=== PATIENT | female | born 1945 | race Caucasian/White ===

== ENCOUNTER 2019-03-26 07:38 | Observation (INO) | payer MEDICARE, BC ==
[~2019-03-26 07:38] MED LIST: Bisacodyl 5 MG Tab PO PRN; Lactated Ringers 1,000 ML IV SCH; Lidocaine 1%/Sod Bicarbonate in NS 8.4% 1 ML Syringe IDERM PRN; Magnesium Hydroxide 400 MG/5 ML Susp 30 ML Cup PO PRN; Morphine 2 MG/ML Syringe IVPUSH PRN; Naloxone 0.4 MG/ML SDV IVPUSH PRN; Ondansetron 4 MG/2 ML SDV IVPUSH PRN; Sennosides 8.6 MG Tab PO PRN; Sodium Chloride 0.9% 10 ML Syringe FLUSH PRN
[2019-03-26] MEDS ORDERED: Lidocaine 1% 4 ML ONE (07:42)
[2019-03-26] MEDS ORDERED: Propofol 200 MG/20 ML SDV ONE (07:42)
[2019-03-26] MEDS ORDERED: Midazolam 1 MG/ML 2 ML SDV ONE (07:43)
[2019-03-26] MEDS ORDERED: fentaNYL 100 MCG/2 ML SDV ONE (07:44)
[2019-03-26] MEDS ORDERED: Pregabalin 25 MG Cap PO ONE (08:00)
[2019-03-26] MEDS ORDERED: Morphine 8 MG, EPINEPHrine 0.3 MG, Cefuroxime 750 MG, Ketorolac 30 MG, Sodium Chloride ... ONE ×5 (08:00)
[2019-03-26] MEDS ORDERED: Acetaminophen 325 MG Tab PO ONE (08:00)
[2019-03-26] MEDS ORDERED: oxyCODONE ER 10 MG TAB.ER PO ONE (08:00)
[2019-03-26] MEDS ORDERED: Vancomycin 1 GM SDV ONE (08:08)
[2019-03-26] MEDS ORDERED: ceFAZolin 1 GM Vial ONE (08:08)
[2019-03-26] MEDS ORDERED: Bupivacaine 0.25% 10 ML SDV ONE ×2 (08:09→08:39)
[2019-03-26] MEDS ORDERED: Iodine/Sodium Iodide 2% Tincture 30 ML Bottle ONE (08:09)
--- NOTE | 2019-03-26 08:14 | PCM.PREANE ---
Preanesthetic Assessment - Anesthesia/Transfusion/Family Hx Anesthesia History: Prior Anesthesia Without Reaction Family History of Anesthesia Reaction: No Transfusion History: No Prior Transfusion(s) - Review of Systems General: No Symptoms Pulmonary: No Symptoms Cardiovascular: No Symptoms Gastrointestinal: No Symptoms Neurological: No Symptoms Other: Reports: None - Physical Assessment NPO Status Date: 03/25/19 NPO Status Time: 23:00 ASA Class: 2 Mental Status: Alert & Oriented x3 Airway Class: Mallampati = 2 Dentition: Reports: Normal Dentition Thyro-Mental Finger Breadths: 3 Mouth Opening Finger Breadths: 3 ROM/Head Extension: Full Lungs: Clear to Auscultation, Normal Respiratory Effort Cardiovascular: Regular Rate, Regular Rhythm - Lab Values: Laboratory Last Values MRSA (PCR) Negative 03/14/19 14:50 - Allergies Allergies/Adverse Reactions: Allergies Allergy/AdvReac Type Severity Reaction Status Date / Time No Known Allergies Allergy Verified 03/23/19 10:05 - Acknowledgements Anesthesia Type Planned: Spinal Pt an Appropriate Candidate for the Planned Anesthesia: Yes Alternatives and Risks of Anesthesia Discussed w Pt/Guardian: Yes Pt/Guardian Understands and Agrees with Anesthesia Plan: Yes PreAnesthesia Questionnaire HEENT History: Reports: None Cardiovascular History: Reports: Hypertension, Other (See Below) (hx palpitations r/t anxiety) Respiratory History: Reports: None Gastrointestinal History: Reports: None Genitourinary History: Reports: None Musculoskeletal History: Reports: Osteoarthritis Neurological History: Reports: None Psychiatric History: Reports: Anxiety, Depression, Other (See Below) Other Psychiatric History: Insomnia, Greif Endocrine/Metabolic History: Reports: None - Past Surgical History Head Surgeries/Procedures: Reports: None HEENT Surgical History: Reports: None Cardiovascular Surgical History: Reports: None GI Surgical History: Reports: None Female Surgical History: Reports: D&C Musculoskeletal Surgical History: Reports: None - SUBSTANCE USE Smoking Status *Q: Former Smoker Recreational Drug Use History: No - HOME MEDS Home Medications: Home Meds Calcium Carbonate/Vitamin D3 [Calcium 600 + Vit D 200] 1 tab PO DAILY 03/23/19 [ History] Cholecalciferol (Vitamin D3) [Vitamin D3] 1 tab PO DAILY 03/23/19 [History] Escitalopram Oxalate [Lexapro] 10 mg PO DAILY 03/23/19 [History] Annabella W/Tumeric 2 tab PO DAILY 03/23/19 [History] Losartan/Hydrochlorothiazide [Losartan-HCTZ 100-25 MG] 0.5 tab PO DAILY [History] Magnesium 400 mg PO DAILY 03/23/19 [History] Multivitamin [One-Daily Multi-Vitamin] 1 tab PO DAILY 03/23/19 [History] Potassium Gluconate [Potassium] 99 mg PO DAILY 03/23/19 [History] busPIRone [Buspar] 5 mg PO TID 03/23/19 [History] traZODone HCl [Trazodone HCl] 50 mg PO BEDTIME 03/23/19 [History] - CURRENT (IN HOUSE) MEDS Current Meds: Current Medications Aspirin (Ecotrin) 325 mg PO BID [facility] Bisacodyl (Dulcolax) 5 mg PO DAILY PRN PRN Reason: Constipation Docusate Sodium (Colace) 100 mg PO BID [facility] Famotidine (Pepcid) 20 mg PO Q12H [facility] Lactated Ringer's (Ringers, Lactated) 1,000 mls @ 125 mls/hr IV ASDIRECTED [facility] Stop: 03/26/19 23:00 Cefazolin Sodium/Dextrose 2 gm (/ Premix) 50 mls @ 100 mls/hr IV Q8H [facility] Stop: 03/26/19 23:14 Ketorolac Tromethamine (Toradol) 15 mg IVPUSH Q6H PRN PRN Reason: Pain Lidocaine/Sodium Bicarbonate (Buffered Lidocaine 1% In Ns 8.4%) 0.25 ml IDERM ONETIME PRN PRN Reason: Prior to IV Start Stop: 03/26/19 18:00 Magnesium Hydroxide (Milk Of Magnesia) 30 ml PO BID PRN PRN Reason: Constipation Morphine Sulfate (Morphine) 2 mg IVPUSH Q2H PRN PRN Reason: Breakthrough Pain Naloxone HCl (Narcan) 0.1 mg IVPUSH Q5M PRN PRN Reason: Oversedation Ondansetron HCl (Zofran) 4 mg IVPUSH Q6H PRN PRN Reason: Nausea/Vomiting Oxycodone/Acetaminophen (Percocet 325-5 Mg) 1 - 2 tab PO Q4H PRN PRN Reason: Pain Senna (Senna) 8.6 mg PO BID PRN PRN Reason: Constipation Sodium Chloride (Saline Flush) 10 ml FLUSH ASDIRECTED PRN PRN Reason: Keep Vein Open Stop: 03/26/19 18:00 Discontinued Medications Acetaminophen (Tylenol) 975 mg PO ONETIME ONE Stop: 03/26/19 08:01 Morphine Sulfate 8 mg/Epinephrine HCl 0.3 mg/Cefuroxime Sodium 750 mg/Ketorolac Tromethamine 30 mg/Sodium Chloride 27.9 ml 0 mg .XX ONETIME ONE Stop: 03/26/19 08:01 Fentanyl (Sublimaze) Confirm Administered Dose 100 mcg .ROUTE .STK-MED ONE Stop: 03/26/19 07:45 Lidocaine HCl (Xylocaine-Mpf 1%) Confirm Administered Dose 4 mls @ as directed .ROUTE .STK-MED ONE Stop: 03/26/19 07:43 Midazolam HCl (Versed 1 Mg/Ml) Confirm Administered Dose 2 mg .ROUTE .STK-MED ONE Stop: 03/26/19 07:44 Oxycodone HCl (Oxycontin) 10 mg PO ONETIME ONE Stop: 03/26/19 08:01 Pregabalin (Lyrica) 50 mg PO ONETIME ONE Stop: 03/26/19 08:01 Propofol (Diprivan 20 Ml) Confirm Administered Dose 200 mg .ROUTE .STK-MED ONE Stop: 03/26/19 07:43
[2019-03-26] MEDS ORDERED: EPINEPHrine 1 MG/ML SDV ONE (09:15)
[2019-03-26] MEDS ORDERED: Ropivacaine 0.5% 5 MG/ML 30 ML SDV ONE (09:15)
[2019-03-26] MEDS ORDERED: Lactated Ringers 1,000 ML ONE (09:56)
[2019-03-26] MEDS ORDERED: ePHEDrine/Normal Saline 25 MG/5 ML Syringe ONE ×2 (10:03→10:26)
[2019-03-26] MEDS ORDERED: Ketorolac 30 MG/ML SDV ONE (10:26)
[2019-03-26] MEDS ORDERED: Ondansetron 4 MG/2 ML SDV ONE (10:27)
--- NOTE | 2019-03-26 11:35 | PCM.POSTAN ---
POST ANESTHESIA ASSESSMENT - MENTAL STATUS Mental Status: Alert, Oriented - VITAL SIGNS Vital Signs: Last Vital Signs Temp 36.6 C 03/26/19 07:50 Pulse 88 03/26/19 07:50 Resp 16 03/26/19 07:50 BP 128/96 H 03/26/19 07:50 Pulse Ox 93 L 03/26/19 07:50 - RESPIRATORY Respiratory Status: Respiratory Rate WNL, Airway Patent, O2 Saturation Stable - CARDIOVASCULAR CV Status: Pulse Rate WNL, Blood Pressure Stable - GASTROINTESTINAL GI Status: No Symptoms - PAIN Pain Score: 0 - POST OP HYDRATION Hydration Status: Adequate & Stable
[2019-03-26] MEDS ORDERED: Ondansetron 4 MG/2 ML SDV IVPUSH PRN (11:38)
[2019-03-26] MEDS ORDERED: fentaNYL 100 MCG/2 ML SDV IVPUSH PRN (11:38)
--- NOTE | 2019-03-26 11:58 | PCM.SN ---
- Free Text/Narrative Note: Right selective femoral nerve block at the adductor canal for post-procedure pain control under US guidance requested by Dr. Mcintyre. Date:03-26-19 Time Out: 1141 Start:1142 End: 1147 Chart reviewed. Consent signed. Questions answered. Appropriate monitors applied. Time out performed. Right mid-shaft femur identified with ultrasound, scanning medially of femur, the femoral artery in the adductor canal visualized , and the femoral nerve located laterally to the artery. The skin was prepped lateral to the ultrasound probe with chlorahexadine times two. The 21ga 4 insulated block needle was inserted under direct ultrasound guidance into the adductor canal. 25mL of 0.5% ropivacaine with 1:200,000 epinephrine was injected circumferentially around the nerve with intermittent negative aspiration noted. Patient tolerated the procedure well. Sterile technique noted along with sterile gloves, mask, and sterile probe cover. See picture on progress note and vital signs on nurses notes. Block completed in PACU. Fanny Cooley CRNA
--- NOTE | 2019-03-26 12:20 | PCM48HPAN ---
Post Anesthesia Note - EVALUATION WITHIN 48HRS OF ANESTHETIC Vital Signs in Normal Range: Yes Patient Participated in Evaluation: Yes Respiratory Function Stable: Yes Airway Patent: Yes Cardiovascular Function Stable: Yes Hydration Status Stable: Yes Pain Control Satisfactory: Yes Nausea and Vomiting Control Satisfactory: Yes Mental Status Recovered: Yes Vital Signs: Last Vital Signs Temp 36.6 C 03/26/19 12:10 Pulse 80 03/26/19 12:10 Resp 18 03/26/19 12:10 BP 105/69 03/26/19 12:10 Pulse Ox 96 03/26/19 12:10
--- NOTE | 2019-03-26 13:30 | CR ---
Right knee: AP and lateral views of the right knee were obtained. Comparison: No prior right knee exam. Knee prosthesis is seen. Components are aligned. Underlying bony structures are intact. Impression: 1. Satisfactory appearance of recently placed right knee prosthesis. Diagnostic code #2 Study was dictated in [place] Standard Time
[2019-03-26] MEDS: Acetaminophen/oxyCODONE 325-5 MG Tab PO PRN ×2 (14:01→20:20)
[2019-03-26] MEDS: busPIRone 5 MG Tab PO SCH ×2 (14:01→20:21)
[2019-03-26] MEDS ORDERED: ceFAZolin 2 GM in Premix Bag 1 BAG IV SCH (16:30)
[2019-03-26] MEDS: Citalopram 20 MG Tab PO SCH (17:47)
[2019-03-26] MEDS: Multivitamins,Therapeutic Tab PO SCH (17:47)
[2019-03-26] MEDS: Calcium Carbonate/Vitamin D3 600 MG-200 Units Tab PO SCH (17:47)
[2019-03-26] MEDS: Magnesium Oxide 400 MG Tab PO SCH (17:47)
[2019-03-26] MEDS: Cholecalciferol (Vitamin D3) 5,000 UNIT Tab PO SCH (17:47)
[2019-03-26] MEDS: Ketorolac 15 MG/ML SDV IVPUSH PRN (20:19)
[2019-03-26] MEDS: ceFAZolin 2 GM in Premix Bag 1 BAG IV SCH (20:19)
[2019-03-26] MEDS: traZODone 50 MG Tab PO SCH (20:21)
[2019-03-26] MEDS: Famotidine 20 MG Tab PO SCH (20:21)
[2019-03-26] MEDS: Docusate Sodium 100 MG Cap PO SCH (20:21)
[2019-03-27] MEDS: ceFAZolin 2 GM in Premix Bag 1 BAG IV SCH ×2 (03:34→10:30)
[2019-03-27] MEDS: Acetaminophen/oxyCODONE 325-5 MG Tab PO PRN ×4 (03:34→20:48)
--- NOTE | 2019-03-27 07:59 | PCM48HPAN ---
Post Anesthesia Note - EVALUATION WITHIN 48HRS OF ANESTHETIC Vital Signs in Normal Range: Yes Patient Participated in Evaluation: Yes Respiratory Function Stable: Yes Airway Patent: Yes Cardiovascular Function Stable: Yes Hydration Status Stable: Yes Pain Control Satisfactory: Yes Nausea and Vomiting Control Satisfactory: Yes Mental Status Recovered: Yes Vital Signs: Last Vital Signs Temp 36.3 C 03/26/19 23:24 Pulse 81 03/27/19 03:34 Resp 18 03/27/19 03:34 BP 96/68 03/27/19 03:34 Pulse Ox 93 L 03/27/19 03:34 - COMMENTS/OBSERVATIONS Free Text/Narrative:: no anesthesia complications noted
--- NOTE | 2019-03-27 08:16 | PCM.SURGPN ---
- General Info Date of Service: 03/27/19 POD#: 1 Functional Status: Reports: Pain Controlled, Tolerating Diet, Ambulating, Urinating, Incentive Spirometry - Patient Data Vitals - Most Recent: Last Vital Signs Temp 97.3 F 03/26/19 23:24 Pulse 81 03/27/19 03:34 Resp 18 03/27/19 03:34 BP 96/68 03/27/19 03:34 Pulse Ox 93 L 03/27/19 03:34 Weight - Most Recent: 193 lb I&O - Last 24 Hours: Intake & Output 03/26/19 03/27/19 03/27/19 22:59 06:59 14:59 Intake Total 1150 950 Output Total 300 400 Balance 850 550 Lab Results Last 24 Hrs: Laboratory Results - last 24 hr 03/27/19 03/27/19 Range/Units 05:18 05:18 WBC 9.02 (3.98-10.04) K/mm3 RBC 4.10 (3.98-5.22) M/mm3 Hgb 10.5 L (11.2-15.7) gm/dl Hct 35.0 (34.1-44.9) % MCV 85.4 (79.4-94.8) fl MCH 25.6 (25.6-32.2) pg MCHC 30.0 L (32.2-35.5) g/dl RDW Std Deviation 50.5 H (36.4-46.3) fL Plt Count 301 (182-369) K/mm3 MPV 9.5 (9.4-12.3) fl Sodium 131 L (136-145) mEq/L Potassium 4.6 (3.5-5.1) mEq/L Chloride 97 L (98-107) mEq/L Carbon Dioxide 30 (21-32) mEq/L Anion Gap 8.6 (5-15) BUN 12 (7-18) mg/dL Creatinine 0.7 (0.55-1.02) mg/dL Est Cr Clr Drug Dosing 73.28 mL/min Estimated GFR (MDRD) > 60 (>60) mL/min BUN/Creatinine Ratio 17.1 (14-18) Glucose 126 H (83-115) mg/dL Calcium 9.9 (8.5-10.1) mg/dL Total Bilirubin 0.5 (0.2-1.0) mg/dL AST 14 L (15-37) U/L ALT 31 (14-59) U/L Alkaline Phosphatase 56 (46-116) U/L Total Protein 5.8 L (6.4-8.2) g/dl Albumin 2.7 L (3.4-5.0) g/dl Globulin 3.1 gm/dL Albumin/Globulin Ratio 0.9 L (1-2) Med Orders - Current: Current Medications Aspirin (Ecotrin) 325 mg PO BID [facility] Bisacodyl (Dulcolax) 5 mg PO DAILY PRN PRN Reason: Constipation Buspirone HCl (Buspar) 5 mg PO TID [facility] Last Admin: 03/26/19 20:21 Dose: 5 mg Calcium Carbonate (Calcium Carbonate/Vitamin D 600 Mg-200 Unit) 1 tab PO QPM [facility] Last Admin: 03/26/19 17:47 Dose: 1 tab Cholecalciferol (Vitamin D3) 5,000 unit PO QPM [facility] Last Admin: 03/26/19 17:47 Dose: 5,000 unit Citalopram Hydrobromide (Celexa) 20 mg PO QPM [facility] Last Admin: 03/26/19 17:47 Dose: 20 mg Docusate Sodium (Colace) 100 mg PO BID [facility] Last Admin: 03/26/19 20:21 Dose: 100 mg Famotidine (Pepcid) 20 mg PO Q12H [facility] Last Admin: 03/26/19 20:21 Dose: 20 mg Hydrochlorothiazide (Hydrochlorothiazide) 12.5 mg PO DAILY [facility] Cefazolin Sodium/Dextrose 2 gm (/ Premix) 50 mls @ 100 mls/hr IV Q8H [facility] Stop: 03/27/19 11:59 Last Admin: 03/27/19 03:34 Dose: 100 mls/hr Ketorolac Tromethamine (Toradol) 15 mg IVPUSH Q6H PRN PRN Reason: Pain Last Admin: 03/26/19 20:19 Dose: 15 mg Losartan Potassium (Cozaar) 50 mg PO DAILY [facility] Magnesium Hydroxide (Milk Of Magnesia) 30 ml PO BID PRN PRN Reason: Constipation Magnesium Oxide (Magnesium Oxide) 400 mg PO QPM [facility] Last Admin: 03/26/19 17:47 Dose: 400 mg Morphine Sulfate (Morphine) 2 mg IVPUSH Q2H PRN PRN Reason: Breakthrough Pain Multivitamins (Thera) 1 each PO QPM [facility] Last Admin: 03/26/19 17:47 Dose: 1 each Naloxone HCl (Narcan) 0.1 mg IVPUSH Q5M PRN PRN Reason: Oversedation Ondansetron HCl (Zofran) 4 mg IVPUSH Q6H PRN PRN Reason: Nausea/Vomiting Oxycodone/Acetaminophen (Percocet 325-5 Mg) 1 - 2 tab PO Q4H PRN PRN Reason: Pain Last Admin: 03/27/19 03:34 Dose: 2 tab Potassium Gluconate (99 Mg) 0 each PO DAILY [facility] Senna (Senna) 8.6 mg PO BID PRN PRN Reason: Constipation Trazodone HCl (Trazodone) 50 mg PO BEDTIME [facility] Last Admin: 03/26/19 20:21 Dose: 50 mg Discontinued Medications Acetaminophen (Tylenol) 975 mg PO ONETIME ONE Stop: 03/26/19 08:01 Last Admin: 03/26/19 08:09 Dose: 975 mg Bupivacaine HCl (Sensorcaine-Mpf 0.25%) Confirm Administered Dose 10 ml .ROUTE .STK-MED ONE Stop: 03/26/19 08:10 Last Admin: 03/26/19 10:59 Dose: 25 ml Bupivacaine HCl (Sensorcaine-Mpf 0.25%) Confirm Administered Dose 20 ml .ROUTE .STK-MED ONE Stop: 03/26/19 08:40 Cefazolin Sodium (Ancef) Confirm Administered Dose 2 gm .ROUTE .STK-MED ONE Stop: 03/26/19 08:09 Last Admin: 03/26/19 10:51 Dose: 2 gm Morphine Sulfate 8 mg/Epinephrine HCl 0.3 mg/Cefuroxime Sodium 750 mg/Ketorolac Tromethamine 30 mg/Sodium Chloride 27.9 ml 0 mg .XX ONETIME ONE Stop: 03/26/19 08:01 Last Admin: 03/26/19 10:58 Dose: 788.3 mg Ephedrine Sulfate (Ephedrine In Ns) Confirm Administered Dose 25 mg .ROUTE .STK- MED ONE Stop: 03/26/19 10:04 Ephedrine Sulfate (Ephedrine In Ns) Confirm Administered Dose 25 mg .ROUTE .STK- MED ONE Stop: 03/26/19 10:27 Epinephrine HCl (Adrenalin) Confirm Administered Dose 1 mg .ROUTE .ST-MED ONE Stop: 03/26/19 09:16 Fentanyl (Sublimaze) Confirm Administered Dose 100 mcg .ROUTE .ST-MED ONE Stop: 03/26/19 07:45 Fentanyl (Sublimaze) 50 mcg IVPUSH Q5M PRN PRN Reason: Pain Stop: 03/26/19 18:00 Lactated Ringer's (Ringers, Lactated) 1,000 mls @ 125 mls/hr IV ASDIRECTED [facility] Stop: 03/26/19 23:00 Last Admin: 03/26/19 08:15 Dose: 125 mls/hr Cefazolin Sodium/Dextrose 2 gm (/ Premix) 50 mls @ 100 mls/hr IV Q8H [facility] Stop: 03/27/19 08:59 Lidocaine HCl (Xylocaine-Mpf 1%) Confirm Administered Dose 4 mls @ as directed .ROUTE .[facility] ONE Stop: 03/26/19 07:43 Lactated Ringer's (Ringers, Lactated) Confirm Administered Dose 1,000 mls @ as directed .ROUTE .[facility]-MED ONE Stop: 03/26/19 09:57 Iodine (Iodine 2% Mild Tincture) Confirm Administered Dose 30 ml .ROUTE .ST- MED ONE Stop: 03/26/19 08:10 Last Admin: 03/26/19 10:50 Dose: 18 ml Ketorolac Tromethamine (Toradol) Confirm Administered Dose 30 mg .ROUTE .[facility]- MED ONE Stop: 03/26/19 10:27 Lidocaine/Sodium Bicarbonate (Buffered Lidocaine 1% In Ns 8.4%) 0.25 ml IDERM ONETIME PRN PRN Reason: Prior to IV Start Stop: 03/26/19 18:00 Last Admin: 03/26/19 08:15 Dose: 0.25 ml Midazolam HCl (Versed 1 Mg/Ml) Confirm Administered Dose 2 mg .ROUTE .ST-MED ONE Stop: 03/26/19 07:44 Ondansetron HCl (Zofran) Confirm Administered Dose 4 mg .ROUTE .STK-MED ONE Stop: 03/26/19 10:28 Ondansetron HCl (Zofran) 4 mg IVPUSH ONETIME PRN PRN Reason: Nausea/Vomiting Stop: 03/26/19 18:00 Oxycodone HCl (Oxycontin) 10 mg PO ONETIME ONE Stop: 03/26/19 08:01 Last Admin: 03/26/19 08:09 Dose: 10 mg Pregabalin (Lyrica) 50 mg PO ONETIME ONE Stop: 03/26/19 08:01 Last Admin: 03/26/19 08:09 Dose: 50 mg Propofol (Diprivan 20 Ml) Confirm Administered Dose 200 mg .ROUTE .STK-MED ONE Stop: 03/26/19 07:43 Ropivacaine (Naropin 0.5%) Confirm Administered Dose 30 ml .ROUTE .STK-MED ONE Stop: 03/26/19 09:16 Sodium Chloride (Saline Flush) 10 ml FLUSH ASDIRECTED PRN PRN Reason: Keep Vein Open Stop: 03/26/19 18:00 Tranexamic Acid (Cyklokapron) Confirm Administered Dose 1,000 mg .ROUTE .STK- MED ONE Stop: 03/26/19 08:09 Last Admin: 03/26/19 11:04 Dose: 1,000 mg Vancomycin HCl (Vancomycin) Confirm Administered Dose 1 gm .ROUTE .STK-MED ONE Stop: 03/26/19 08:09 Last Admin: 03/26/19 11:00 Dose: 1 gm - Exam Wound/Incisions: Dressing Dry and Intact General: Alert, Cooperative, No Acute Distress Lungs: Normal Respiratory Effort Extremities: Other (NVS intact for BLE. Arlene's negative.) Sepsis Event Note - Evaluation Sepsis Screening Result: No Definite Risk - Focused Exam Vital Signs: Vital Signs Temp Pulse Resp BP Pulse Ox 03/27/19 03:34 81 18 96/68 93 L 03/26/19 23:24 97.3 F 95 12 127/65 98 Date Exam was Performed: 03/27/19 Time Exam was Performed: 13:26 - Problem List Review Problem List Initiated/Reviewed/Updated: Yes - My Orders Last 24 Hours: Active Orders 24 hr Category Date Time Status Communication Order [RC] ASDIRECTED Care 03/26/19 11:37 Active Communication Order [RC] ASDIRECTED Care 03/27/19 08:05 Active Notify Provider [RC] ASDIRECTED Care 03/26/19 11:38 Active Oxygen Therapy [RC] ASDIRECTED Care 03/26/19 11:38 Active Ready for Discharge [RC] PER UNIT ROUTINE Care 03/27/19 08:00 Active Vital Signs [RC] Q4HR Care 03/26/19 11:38 Active Regular Diet [DIET] Diet 03/26/19 Lunch Active Aspirin [Ecotrin] Med 03/27/19 09:00 Active 325 mg PO BID Calcium Carbonate/Vitamin D3 [Calcium Carbonate/Vitamin Med 03/26/19 18:00 Active D 600 MG-200 Unit] 1 tab PO QPM Cholecalciferol (Vitamin D3) [Vitamin D3] Med 03/26/19 18:00 Active 5,000 unit PO QPM Citalopram [Celexa] Med 03/26/19 18:00 Active 20 mg PO QPM Docusate Sodium [Colace] Med 03/26/19 21:00 Active 100 mg PO BID Famotidine [Pepcid] Med 03/26/19 21:00 Active 20 mg PO Q12H Ketorolac [Toradol] Med 03/26/19 16:30 Active 15 mg IVPUSH Q6H PRN Losartan [Cozaar] Med 03/27/19 09:00 Active 50 mg PO DAILY Magnesium Oxide Med 03/26/19 18:00 Active 400 mg PO QPM Multivitamins,Therapeutic [Thera] Med 03/26/19 18:00 Active 1 each PO QPM Patient's Own Medication [Ptom] Med 03/27/19 09:00 Active 0 each PO DAILY busPIRone [Buspar] Med 03/26/19 15:00 Active 5 mg PO TID ceFAZolin [Ancef] 2 gm Med 03/26/19 19:30 Active Premix Bag 1 bag IV Q8H hydroCHLOROthiazide Med 03/27/19 09:00 Active 12.5 mg PO DAILY traZODone Med 03/26/19 21:00 Active 50 mg PO BEDTIME Medication Orders Aspirin (Ecotrin) 325 mg PO BID [facility] Bisacodyl (Dulcolax) 5 mg PO DAILY PRN PRN Reason: Constipation Buspirone HCl (Buspar) 5 mg PO TID [facility] Last Admin: 03/26/19 20:21 Dose: 5 mg Admin: 03/26/19 14:01 Dose: 5 mg Calcium Carbonate (Calcium Carbonate/Vitamin D 600 Mg-200 Unit) 1 tab PO QPM [facility] Last Admin: 03/26/19 17:47 Dose: 1 tab Cholecalciferol (Vitamin D3) 5,000 unit PO QPM [facility] Last Admin: 03/26/19 17:47 Dose: 5,000 unit Citalopram Hydrobromide (Celexa) 20 mg PO QPM [facility] Last Admin: 03/26/19 17:47 Dose: 20 mg Docusate Sodium (Colace) 100 mg PO BID [facility] Last Admin: 03/26/19 20:21 Dose: 100 mg Famotidine (Pepcid) 20 mg PO Q12H [facility] Last Admin: 03/26/19 20:21 Dose: 20 mg Hydrochlorothiazide (Hydrochlorothiazide) 12.5 mg PO DAILY [facility] Cefazolin Sodium/Dextrose 2 gm (/ Premix) 50 mls @ 100 mls/hr IV Q8H [facility] Stop: 03/27/19 11:59 Last Admin: 03/27/19 03:34 Dose: 100 mls/hr Infusion: 03/26/19 20:49 Dose: 100 mls/hr Admin: 03/26/19 20:19 Dose: 100 mls/hr Ketorolac Tromethamine (Toradol) 15 mg IVPUSH Q6H PRN PRN Reason: Pain Last Admin: 03/26/19 20:19 Dose: 15 mg Losartan Potassium (Cozaar) 50 mg PO DAILY [facility] Magnesium Hydroxide (Milk Of Magnesia) 30 ml PO BID PRN PRN Reason: Constipation Magnesium Oxide (Magnesium Oxide) 400 mg PO QPM [facility] Last Admin: 03/26/19 17:47 Dose: 400 mg Morphine Sulfate (Morphine) 2 mg IVPUSH Q2H PRN PRN Reason: Breakthrough Pain Multivitamins (Thera) 1 each PO QPM [facility] Last Admin: 03/26/19 17:47 Dose: 1 each Naloxone HCl (Narcan) 0.1 mg IVPUSH Q5M PRN PRN Reason: Oversedation Ondansetron HCl (Zofran) 4 mg IVPUSH Q6H PRN PRN Reason: Nausea/Vomiting Oxycodone/Acetaminophen (Percocet 325-5 Mg) 1 - 2 tab PO Q4H PRN PRN Reason: Pain Last Admin: 03/27/19 03:34 Dose: 2 tab Admin: 03/26/19 20:20 Dose: 2 tab Admin: 03/26/19 14:01 Dose: 1 tab Potassium Gluconate (99 Mg) 0 each PO DAILY [facility] Senna (Senna) 8.6 mg PO BID PRN PRN Reason: Constipation Trazodone HCl (Trazodone) 50 mg PO BEDTIME [facility] Last Admin: 03/26/19 20:21 Dose: 50 mg - Assessment Assessment (Free Text/Narrative):: POD#1 - right TKA - Plan Plan (Free Text/Narrative):: 1. Hgb 10.5. 2. ASA 325mg PO BID, frequent mobility, TEDs. 3. Outpatient therapy. 4. Discharge to home today if inpt therapy goals met and medically cleared. The pt's case was discussed with Dr. Mcintyre.
[2019-03-27] MEDS: Aspirin 325 MG Tab.EC PO SCH ×2 (10:02→20:48)
[2019-03-27] MEDS: Famotidine 20 MG Tab PO SCH ×2 (10:04→20:48)
[2019-03-27] MEDS: Hydrochlorothiazide 12.5 MG Cap PO SCH (10:05)
[2019-03-27] MEDS: busPIRone 5 MG Tab PO SCH ×3 (10:06→20:48)
[2019-03-27] MEDS: Docusate Sodium 100 MG Cap PO SCH ×2 (10:08→20:48)
[2019-03-27] MEDS: Losartan 25 MG Tab PO SCH (10:08)
--- NOTE | 2019-03-27 12:53 | PCM.CONS ---
H&P History of Present Illness - General Date of Service: 03/27/19 Admit Problem/Dx: Admission Diagnosis/Problem Admission Diagnosis/Problem Osteoarthritis of knee Source of Information: Patient, Provider, RN, RN Notes Reviewed - History of Present Illness Initial Comments - Free Text/Narative: Mee Faria is a 74 yo [address] patient of Dr. Mcintyre who is post-operative day 1 of right TKA. Hospital medicine was consulted for post-operative medical care of her hypoxia. At this time she is resting comfortably in bed. Pain is controlled. She denies any chest pain, shortness of breath, palpitations, nausea , or vomiting, although she was nauseated earlier today. She carries a history of: HTN, SI joint pain, depression, insomnia, thrombocytosis, hypercalcemia. She is not a smoker She is a full code. Her primary care provider is Keyona Gupta NP. - Related Data Allergies/Adverse Reactions: Allergies Allergy/AdvReac Type Severity Reaction Status Date / Time No Known Allergies Allergy Verified 03/23/19 10:05 Home Medications: Home Meds Calcium Carbonate/Vitamin D3 [Calcium 600 + Vit D 200] 1 tab PO DAILY 03/23/19 [ History] Cholecalciferol (Vitamin D3) [Vitamin D3] 1 tab PO DAILY 03/23/19 [History] Escitalopram Oxalate [Lexapro] 10 mg PO DAILY 03/23/19 [History] Losartan/Hydrochlorothiazide [Losartan-HCTZ 100-25 MG] 0.5 tab PO DAILY [History] Magnesium 400 mg PO DAILY 03/23/19 [History] Multivitamin [One-Daily Multi-Vitamin] 1 tab PO DAILY 03/23/19 [History] Potassium Gluconate [Potassium] 99 mg PO DAILY 03/23/19 [History] busPIRone [Buspar] 5 mg PO TID 03/23/19 [History] traZODone HCl [Trazodone HCl] 50 mg PO BEDTIME 03/23/19 [History] Acetaminophen/oxyCODONE [Percocet 325-5 MG] 1 - 2 tab PO Q4H PRN #60 tablet [Rx] Aspirin [Ecotrin EC] 325 mg PO BID #84 tab.ec 03/27/19 [Rx] Docusate Sodium [Colace] 100 mg PO BID cap 03/27/19 [Rx] Famotidine [Pepcid] 20 mg PO Q12H tablet 03/27/19 [Rx] Magnesium Hydroxide [Milk of Magnesia] 30 ml PO BID PRN cup 03/27/19 [Rx] Sennosides [Senna] 8.6 mg PO BID PRN tablet 03/27/19 [Rx] bisacodyL [Dulcolax] 5 mg PO DAILY PRN tablet 03/27/19 [Rx] Past Medical History HEENT History: Reports: None Cardiovascular History: Reports: Hypertension, Other (See Below) (hx palpitations r/t anxiety) Respiratory History: Reports: None Gastrointestinal History: Reports: None Genitourinary History: Reports: None Musculoskeletal History: Reports: Osteoarthritis Neurological History: Reports: None Psychiatric History: Reports: Anxiety, Depression, Other (See Below) Other Psychiatric History: Insomnia, [place] Endocrine/Metabolic History: Reports: None - Past Surgical History Head Surgeries/Procedures: Reports: None HEENT Surgical History: Reports: None Cardiovascular Surgical History: Reports: None GI Surgical History: Reports: None Female Surgical History: Reports: D&C Musculoskeletal Surgical History: Reports: None Social & Family History - Tobacco Use Smoking Status *Q: Former Smoker - Caffeine Use Caffeine Use: Reports: Coffee, Tea - Recreational Drug Use Recreational Drug Use: No Drug Use in Last 12 Months: No H&P Review of Systems - Review of Systems: Review Of Systems: See Below General: Reports: No Symptoms. Denies: Fever, Chills, Malaise, Weakness, Fatigue HEENT: Reports: No Symptoms. Denies: Headaches, Sore Throat Pulmonary: Reports: Shortness of Breath. Denies: Wheezing, Cough, Sputum Cardiovascular: Reports: Dyspnea on Exertion. Denies: Chest Pain, Palpitations , Edema Gastrointestinal: Reports: No Symptoms. Denies: Abdominal Pain, Constipation, Diarrhea, Nausea, Vomiting Genitourinary: Reports: No Symptoms. Denies: Pain Musculoskeletal: Reports: Leg Pain Skin: Reports: No Symptoms. Denies: Cyanosis Psychiatric: Reports: No Symptoms Neurological: Reports: Difficulty Walking, Gait Disturbance. Denies: Pre- Existing Deficit Hematologic/Lymphatic: Reports: No Symptoms Immunologic: Reports: No Symptoms Exam - Exam Exam: See Below - Vital Signs Vital Signs: Last Vital Signs Temp 97.3 F 03/26/19 23:24 Pulse 85 03/27/19 08:15 Resp 12 03/27/19 08:15 BP 110/62 03/27/19 10:08 Pulse Ox 91 L 03/27/19 08:15 Weight: 193 lb - Exam Quality Assessment: Supplemental Oxygen (2L), DVT Prophylaxis General: Alert, Oriented, Cooperative. No: Mild Distress HEENT: Conjunctiva Clear, EACs Clear, Hearing Intact, Mucosa Moist & [place], Nares Patent, Posterior Pharynx Clear, PERRLA Neck: Supple, Trachea Midline Lungs: Normal Respiratory Effort, Decreased Breath Sounds Cardiovascular: Regular Rate, Regular Rhythm GI/Abdominal Exam: Normal Bowel Sounds, Soft, Non-Tender, No Distention, No Abnormal Bruit (Female) Exam: Deferred Rectal (Female) Exam: Deferred Back Exam: Normal Inspection, Full Range of Motion Extremities: Normal Capillary Refill, Leg Pain, Limited Range of Motion, Other ( Bandage in place on left leg. Bandage is dry and intact. Cooling pack in place ) Skin: Warm, Dry, Intact Neurological: Cranial Nerves Intact (grossly ) Neuro Extensive - Mental Status: Alert, Oriented x3, Normal Mood/Affect - Patient Data Lab Results Last 24 hrs: Laboratory Results - last 24 hr 03/27/19 03/27/19 Range/Units 05:18 05:18 WBC 9.02 (3.98-10.04) K/mm3 RBC 4.10 (3.98-5.22) M/mm3 Hgb 10.5 L (11.2-15.7) gm/dl Hct 35.0 (34.1-44.9) % MCV 85.4 (79.4-94.8) fl MCH 25.6 (25.6-32.2) pg MCHC 30.0 L (32.2-35.5) g/dl RDW Std Deviation 50.5 H (36.4-46.3) fL Plt Count 301 (182-369) K/mm3 MPV 9.5 (9.4-12.3) fl Sodium 131 L (136-145) mEq/L Potassium 4.6 (3.5-5.1) mEq/L Chloride 97 L (98-107) mEq/L Carbon Dioxide 30 (21-32) mEq/L Anion Gap 8.6 (5-15) BUN 12 (7-18) mg/dL Creatinine 0.7 (0.55-1.02) mg/dL Est Cr Clr Drug Dosing 73.28 mL/min Estimated GFR (MDRD) > 60 (>60) mL/min BUN/Creatinine Ratio 17.1 (14-18) Glucose 126 H (83-115) mg/dL Calcium 9.9 (8.5-10.1) mg/dL Total Bilirubin 0.5 (0.2-1.0) mg/dL AST 14 L (15-37) U/L ALT 31 (14-59) U/L Alkaline Phosphatase 56 (46-116) U/L Total Protein 5.8 L (6.4-8.2) g/dl Albumin 2.7 L (3.4-5.0) g/dl Globulin 3.1 gm/dL Albumin/Globulin Ratio 0.9 L (1-2) Result Diagrams: 03/27/19 05:18 03/27/19 05:18 Sepsis Event Note - Evaluation Sepsis Screening Result: No Definite Risk - Focused Exam Vital Signs: Vital Signs Pulse Resp BP Pulse Ox 03/27/19 10:08 110/62 03/27/19 08:15 85 12 102/53 L 91 L 03/27/19 03:34 81 18 96/68 93 L Date Exam was Performed: 03/27/19 Time Exam was Performed: 14:02 Consult PN Assessment/Plan POD#: 1 (1) S/P total knee arthroplasty SNOMED Code(s): 3141097233857, 800725919, 0447126469436 Code(s): Z96.659 - PRESENCE OF UNSPECIFIED ARTIFICIAL KNEE JOINT Priority: High Current Visit: Yes Qualifiers: Laterality: right Qualified Code(s): Z96.651 - Presence of right artificial knee joint (2) Osteoarthritis SNOMED Code(s): 469279377 Code(s): M19.90 - UNSPECIFIED OSTEOARTHRITIS, UNSPECIFIED SITE Priority: High Current Visit: Yes Qualifiers: Osteoarthritis location: knee Osteoarthritis type: primary Laterality: right Qualified Code(s): M17.11 - Unilateral primary osteoarthritis, right knee (3) Postoperative hypoxia SNOMED Code(s): 421663114 Code(s): R09.02 - HYPOXEMIA; Z98.890 - OTHER SPECIFIED POSTPROCEDURAL STATES Priority: High Current Visit: Yes (4) Shortness of breath SNOMED Code(s): 316268485 Code(s): R06.02 - SHORTNESS OF BREATH Priority: High Current Visit: Yes (5) HTN (hypertension) SNOMED Code(s): 09095945 Code(s): I10 - ESSENTIAL (PRIMARY) HYPERTENSION Priority: Low Current Visit: No Qualifiers: Hypertension type: unspecified Qualified Code(s): I10 - Essential (primary ) hypertension (6) Chronic SI joint pain SNOMED Code(s): 655233207 Code(s): M53.3 - SACROCOCCYGEAL DISORDERS, NOT ELSEWHERE CLASSIFIED; G89.29 - OTHER CHRONIC PAIN Priority: Low Current Visit: No (7) Depression SNOMED Code(s): 48316677 Code(s): F32.9 - MAJOR DEPRESSIVE DISORDER, SINGLE EPISODE, UNSPECIFIED Priority: Low Current Visit: No Qualifiers: Depression Type: other depression Qualified Code(s): F32.89 - Other specified depressive episodes (8) Insomnia SNOMED Code(s): 663147032 Code(s): G47.00 - INSOMNIA, UNSPECIFIED Priority: Low Current Visit: No Qualifiers: Insomnia type: unspecified Qualified Code(s): G47.00 - Insomnia, unspecified (9) Thrombocytosis SNOMED Code(s): 6479770 Code(s): D47.3 - ESSENTIAL (HEMORRHAGIC) THROMBOCYTHEMIA Priority: Low Current Visit: No (10) Hypercalcemia SNOMED Code(s): 76222538 Code(s): E83.52 - HYPERCALCEMIA Priority: Low Current Visit: No (11) Atelectasis of both lungs SNOMED Code(s): 01553253 Code(s): J98.11 - ATELECTASIS Priority: High Current Visit: Yes (12) Pulmonary vascular congestion SNOMED Code(s): 335034679 Code(s): R09.89 - OTH SYMPTOMS AND SIGNS INVOLVING THE CIRC AND RESP SYSTEMS Priority: High Current Visit: Yes Problem List Initiated/Reviewed/Updated: Yes My Orders Last 24 Hours: My Active Orders 03/27/19 12:47 Chest 2V [CR] Routine 03/27/19 12:50 Evaluate for Home Oxygen [RT Evaluate for Home Oxygen] [RC] Click to Edit Plan: I/P: Acute: S/P right total knee arthroplasty - post-operative day 1 -DVT prophylaxis and pain management per primary care team -PT/OT -IS/RT -Monitor oxygen saturation -Titrate oxygen as needed -Home medications reviewed -Vital signs stable -Monitor labs -Pre-operative Hgb was 14.3; Now 10.5 -Pre-operative GFR was 77; now >60 -Pre-operative platelets were 439; Now 301 -Pre-operative calcium was 10.4; Now 9.9 Osteoarthritis of right knee -Pain management per primary care team Post-operative hypoxia -Unable to wean of off oxygen -Reports dyspnea on exertion -2 view CXR shows bibasilar atelectasis, pulmonary vascular congestion -Continue to use IS -Lasix 20mg IVP one time -Easy-pap/RT -Follow-up with PCP after discharge. Hyponatremia -Sodium pre-operatively 137; Now 131 -Monitor -Follow-up with PCP after discharge Chronic: HTN Chronic SI joint pain Depression Insomnia Thrombocytosis Hypercalcemia Plan: CM for discharge planning GI prophylaxis Home medications as indicated Other orders as listed above Routine AM labs She is a full code. Her PCP is Keyona Gupta NP. Thank you for allowing us to participate in the care of this patient!! Requesting Provider: Dr. Mcintyre Date Consult Requested: 03/27/19 Reason for Consult: Post-operative hypoxia Patient History Reviewed: Yes Admission H&P Reviewed: Yes Notified Requestor: Yes
--- NOTE | 2019-03-27 13:34 | CR ---
Chest: Two views of the chest were obtained. Comparison: No prior chest x-ray. Mild bibasilar atelectasis is seen. Heart size is felt to be slightly enlarged. Pulmonary vessels may be minimally congested. Large hiatal hernia is present. Tortuous thoracic aorta is seen. Impression: 1. Bibasilar atelectasis with possible mild pulmonary vascular congestion. Diagnostic code #3 This report was dictated in [place] Standard Time
[2019-03-27] MEDS ORDERED: Furosemide 20 MG/2 ML VIAL IVPUSH ONE (14:00)
[2019-03-27] MEDS: Magnesium Oxide 400 MG Tab PO SCH (17:37)
[2019-03-27] MEDS: Calcium Carbonate/Vitamin D3 600 MG-200 Units Tab PO SCH (17:38)
[2019-03-27] MEDS: Citalopram 20 MG Tab PO SCH (17:38)
[2019-03-27] MEDS: Multivitamins,Therapeutic Tab PO SCH (17:39)
[2019-03-27] MEDS: Cholecalciferol (Vitamin D3) 5,000 UNIT Tab PO SCH (17:39)
[2019-03-27] MEDS: traZODone 50 MG Tab PO SCH (20:48)
[2019-03-27] MEDS: Ketorolac 15 MG/ML SDV IVPUSH PRN (20:49)
[2019-03-28] MEDS: Acetaminophen/oxyCODONE 325-5 MG Tab PO PRN ×4 (06:26→21:34)
[2019-03-28] MEDS: Ketorolac 15 MG/ML SDV IVPUSH PRN (06:26)
--- NOTE | 2019-03-28 07:06 | PCM.SURGPN ---
- General Info Date of Service: 03/28/19 POD#: 2 Functional Status: Reports: Pain Controlled, Tolerating Diet, Ambulating, Urinating, Incentive Spirometry, Other (The pt states she is doing well. Her pain is controlled.) - Patient Data Vitals - Most Recent: Last Vital Signs Temp 97.9 F 03/27/19 20:59 Pulse 73 03/27/19 20:59 Resp 20 03/27/19 20:59 BP 110/91 H 03/27/19 20:59 Pulse Ox 90 L 03/28/19 06:28 Weight - Most Recent: 193 lb I&O - Last 24 Hours: Intake & Output 03/27/19 03/28/19 03/28/19 22:59 06:59 14:59 Intake Total 1650 Output Total 700 Balance 950 Lab Results Last 24 Hrs: Laboratory Results - last 24 hr 03/27/19 03/28/19 Range/Units 05:18 05:10 Sodium 131 L 127 L (136-145) mEq/L Potassium 4.6 4.1 (3.5-5.1) mEq/L Chloride 97 L 92 L (98-107) mEq/L Carbon Dioxide 30 31 (21-32) mEq/L Anion Gap 8.6 8.1 (5-15) BUN 12 11 (7-18) mg/dL Creatinine 0.7 0.6 (0.55-1.02) mg/dL Est Cr Clr Drug Dosing 73.28 85.50 mL/min Estimated GFR (MDRD) > 60 > 60 (>60) mL/min BUN/Creatinine Ratio 17.1 18.3 H (14-18) Glucose 126 H 106 (83-115) mg/dL Calcium 9.9 10.1 (8.5-10.1) mg/dL Total Bilirubin 0.5 0.5 (0.2-1.0) mg/dL AST 14 L 31 (15-37) U/L ALT 31 47 (14-59) U/L Alkaline Phosphatase 56 63 (46-116) U/L Total Protein 5.8 L 5.9 L (6.4-8.2) g/dl Albumin 2.7 L 2.6 L (3.4-5.0) g/dl Globulin 3.1 3.3 gm/dL Albumin/Globulin Ratio 0.9 L 0.8 L (1-2) Med Orders - Current: Current Medications Aspirin (Ecotrin) 325 mg PO BID [facility] Last Admin: 03/27/19 20:48 Dose: 325 mg Bisacodyl (Dulcolax) 5 mg PO DAILY PRN PRN Reason: Constipation Buspirone HCl (Buspar) 5 mg PO TID [facility] Last Admin: 03/27/19 20:48 Dose: 5 mg Calcium Carbonate (Calcium Carbonate/Vitamin D 600 Mg-200 Unit) 1 tab PO QPM [facility] Last Admin: 03/27/19 17:38 Dose: 1 tab Cholecalciferol (Vitamin D3) 5,000 unit PO QPM [facility] Last Admin: 03/27/19 17:39 Dose: 5,000 unit Citalopram Hydrobromide (Celexa) 20 mg PO QPM [facility] Last Admin: 03/27/19 17:38 Dose: 20 mg Docusate Sodium (Colace) 100 mg PO BID [facility] Last Admin: 03/27/19 20:48 Dose: 100 mg Famotidine (Pepcid) 20 mg PO Q12H [facility] Last Admin: 03/27/19 20:48 Dose: 20 mg Hydrochlorothiazide (Hydrochlorothiazide) 12.5 mg PO DAILY [facility] Last Admin: 03/27/19 10:05 Dose: 12.5 mg Losartan Potassium (Cozaar) 50 mg PO DAILY [facility] Last Admin: 03/27/19 10:08 Dose: 50 mg Magnesium Hydroxide (Milk Of Magnesia) 30 ml PO BID PRN PRN Reason: Constipation Magnesium Oxide (Magnesium Oxide) 400 mg PO QPM [facility] Last Admin: 03/27/19 17:37 Dose: 400 mg Morphine Sulfate (Morphine) 2 mg IVPUSH Q2H PRN PRN Reason: Breakthrough Pain Multivitamins (Thera) 1 each PO QPM [facility] Last Admin: 03/27/19 17:39 Dose: 1 each Naloxone HCl (Narcan) 0.1 mg IVPUSH Q5M PRN PRN Reason: Oversedation Ondansetron HCl (Zofran) 4 mg IVPUSH Q6H PRN PRN Reason: Nausea/Vomiting Last Admin: 03/27/19 11:06 Dose: 4 mg Oxycodone/Acetaminophen (Percocet 325-5 Mg) 1 - 2 tab PO Q4H PRN PRN Reason: Pain Last Admin: 03/28/19 06:26 Dose: 2 tab Potassium Gluconate (99 Mg) 0 each PO DAILY [facility] Last Admin: 03/27/19 10:11 Dose: Not Given Senna (Senna) 8.6 mg PO BID PRN PRN Reason: Constipation Trazodone HCl (Trazodone) 50 mg PO BEDTIME [facility] Last Admin: 03/27/19 20:48 Dose: 50 mg Discontinued Medications Acetaminophen (Tylenol) 975 mg PO ONETIME ONE Stop: 03/26/19 08:01 Last Admin: 03/26/19 08:09 Dose: 975 mg Bupivacaine HCl (Sensorcaine-Mpf 0.25%) Confirm Administered Dose 10 ml .ROUTE .STK-MED ONE Stop: 03/26/19 08:10 Last Admin: 03/26/19 10:59 Dose: 25 ml Bupivacaine HCl (Sensorcaine-Mpf 0.25%) Confirm Administered Dose 20 ml .ROUTE .STK-MED ONE Stop: 03/26/19 08:40 Cefazolin Sodium (Ancef) Confirm Administered Dose 2 gm .ROUTE .STK-MED ONE Stop: 03/26/19 08:09 Last Admin: 03/26/19 10:51 Dose: 2 gm Morphine Sulfate 8 mg/Epinephrine HCl 0.3 mg/Cefuroxime Sodium 750 mg/Ketorolac Tromethamine 30 mg/Sodium Chloride 27.9 ml 0 mg .XX ONETIME ONE Stop: 03/26/19 08:01 Last Admin: 03/26/19 10:58 Dose: 788.3 mg Ephedrine Sulfate (Ephedrine In Ns) Confirm Administered Dose 25 mg .ROUTE .STK- MED ONE Stop: 03/26/19 10:04 Ephedrine Sulfate (Ephedrine In Ns) Confirm Administered Dose 25 mg .ROUTE .STK- MED ONE Stop: 03/26/19 10:27 Epinephrine HCl (Adrenalin) Confirm Administered Dose 1 mg .ROUTE .STK-MED ONE Stop: 03/26/19 09:16 Fentanyl (Sublimaze) Confirm Administered Dose 100 mcg .ROUTE .STK-MED ONE Stop: 03/26/19 07:45 Fentanyl (Sublimaze) 50 mcg IVPUSH Q5M PRN PRN Reason: Pain Stop: 03/26/19 18:00 Furosemide (Lasix) 20 mg IVPUSH NOW ONE Stop: 03/27/19 14:01 Last Admin: 03/27/19 14:40 Dose: 20 mg Lactated Ringer's (Ringers, Lactated) 1,000 mls @ 125 mls/hr IV ASDIRECTED [facility] Stop: 03/26/19 23:00 Last Admin: 03/26/19 08:15 Dose: 125 mls/hr Cefazolin Sodium/Dextrose 2 gm (/ Premix) 50 mls @ 100 mls/hr IV Q8H [facility] Stop: 03/27/19 08:59 Lidocaine HCl (Xylocaine-Mpf 1%) Confirm Administered Dose 4 mls @ as directed .ROUTE .STK-MED ONE Stop: 03/26/19 07:43 Lactated Ringer's (Ringers, Lactated) Confirm Administered Dose 1,000 mls @ as directed .ROUTE .STK-MED ONE Stop: 03/26/19 09:57 Cefazolin Sodium/Dextrose 2 gm (/ Premix) 50 mls @ 100 mls/hr IV Q8H [facility] Stop: 03/27/19 11:59 Last Admin: 03/27/19 10:30 Dose: 100 mls/hr Iodine (Iodine 2% Mild Tincture) Confirm Administered Dose 30 ml .ROUTE .STK- MED ONE Stop: 03/26/19 08:10 Last Admin: 03/26/19 10:50 Dose: 18 ml Ketorolac Tromethamine (Toradol) 15 mg IVPUSH Q6H PRN PRN Reason: Pain Last Admin: 03/28/19 06:26 Dose: 15 mg Ketorolac Tromethamine (Toradol) Confirm Administered Dose 30 mg .ROUTE .STK- MED ONE Stop: 03/26/19 10:27 Lidocaine/Sodium Bicarbonate (Buffered Lidocaine 1% In Ns 8.4%) 0.25 ml IDERM ONETIME PRN PRN Reason: Prior to IV Start Stop: 03/26/19 18:00 Last Admin: 03/26/19 08:15 Dose: 0.25 ml Midazolam HCl (Versed 1 Mg/Ml) Confirm Administered Dose 2 mg .ROUTE .STK-MED ONE Stop: 03/26/19 07:44 Ondansetron HCl (Zofran) Confirm Administered Dose 4 mg .ROUTE .STK-MED ONE Stop: 03/26/19 10:28 Ondansetron HCl (Zofran) 4 mg IVPUSH ONETIME PRN PRN Reason: Nausea/Vomiting Stop: 03/26/19 18:00 Oxycodone HCl (Oxycontin) 10 mg PO ONETIME ONE Stop: 03/26/19 08:01 Last Admin: 03/26/19 08:09 Dose: 10 mg Pregabalin (Lyrica) 50 mg PO ONETIME ONE Stop: 03/26/19 08:01 Last Admin: 03/26/19 08:09 Dose: 50 mg Propofol (Diprivan 20 Ml) Confirm Administered Dose 200 mg .ROUTE .STK-MED ONE Stop: 03/26/19 07:43 Ropivacaine (Naropin 0.5%) Confirm Administered Dose 30 ml .ROUTE .STK-MED ONE Stop: 03/26/19 09:16 Sodium Chloride (Saline Flush) 10 ml FLUSH ASDIRECTED PRN PRN Reason: Keep Vein Open Stop: 03/26/19 18:00 Tranexamic Acid (Cyklokapron) Confirm Administered Dose 1,000 mg .ROUTE .STK- MED ONE Stop: 03/26/19 08:09 Last Admin: 03/26/19 11:04 Dose: 1,000 mg Vancomycin HCl (Vancomycin) Confirm Administered Dose 1 gm .ROUTE .STK-MED ONE Stop: 03/26/19 08:09 Last Admin: 03/26/19 11:00 Dose: 1 gm - Exam Wound/Incisions: Dressing Dry and Intact General: Alert, Cooperative, No Acute Distress Lungs: Normal Respiratory Effort Extremities: Other (NVS intact for BLE. Arlene's negative.) Sepsis Event Note - Evaluation Sepsis Screening Result: No Definite Risk - Focused Exam Vital Signs: Vital Signs Temp Pulse Resp BP Pulse Ox Pulse Ox Pulse Ox 03/28/19 06:28 90 L 03/28/19 06:20 84 L 03/28/19 05:59 93 L 03/27/19 20:59 97.9 F 73 20 110/91 H 94 L 03/27/19 20:21 94 L 03/27/19 19:48 77 92 L 03/27/19 19:46 80 82 L Date Exam was Performed: 03/28/19 Time Exam was Performed: 07:01 - Problem List Review Problem List Initiated/Reviewed/Updated: Yes - My Orders Last 24 Hours: Active Orders 24 hr Category Date Time Status Patient Status [ADT] Routine ADT 03/27/19 19:58 Active Communication Order [RC] ASDIRECTED Care 03/27/19 08:05 Active Evaluate for Home Oxygen [RT Evaluate for Home Oxygen] Care 03/27/19 12:50 Inactive [RC] Click to Edit Notify Provider Consults [RC] ASDIRECTED Care 03/27/19 12:46 Active Ready for Discharge [RC] PER UNIT ROUTINE Care 03/27/19 08:00 Inactive Consult to Physician [CONS] Routine Cons 03/27/19 12:45 Active Consult to Respiratory Therapy [Respiratory Care Assess Cons 03/27/19 13:54 Active and Treatment] [CONS] Routine BMP [BASIC METABOLIC PANEL,BMP] [CHEM] Routine Lab 03/28/19 06:48 Ordered CBC WITH AUTO DIFF [HEME] AM Lab 03/28/19 05:10 Received Aspirin [Ecotrin] Med 03/27/19 09:00 Active 325 mg PO BID Losartan [Cozaar] Med 03/27/19 09:00 Active 50 mg PO DAILY Patient's Own Medication [Ptom] Med 03/27/19 09:00 Active 0 each PO DAILY hydroCHLOROthiazide Med 03/27/19 09:00 Active 12.5 mg PO DAILY Medication Orders Aspirin (Ecotrin) 325 mg PO BID [facility] Last Admin: 03/27/19 20:48 Dose: 325 mg Admin: 03/27/19 10:02 Dose: 325 mg Bisacodyl (Dulcolax) 5 mg PO DAILY PRN PRN Reason: Constipation Buspirone HCl (Buspar) 5 mg PO TID [facility] Last Admin: 03/27/19 20:48 Dose: 5 mg Admin: 03/27/19 14:40 Dose: 5 mg Admin: 03/27/19 10:06 Dose: 5 mg Admin: 03/26/19 20:21 Dose: 5 mg Admin: 03/26/19 14:01 Dose: 5 mg Calcium Carbonate (Calcium Carbonate/Vitamin D 600 Mg-200 Unit) 1 tab PO QPM [facility] Last Admin: 03/27/19 17:38 Dose: 1 tab Admin: 03/26/19 17:47 Dose: 1 tab Cholecalciferol (Vitamin D3) 5,000 unit PO QPM [facility] Last Admin: 03/27/19 17:39 Dose: 5,000 unit Admin: 03/26/19 17:47 Dose: 5,000 unit Citalopram Hydrobromide (Celexa) 20 mg PO QPM [facility] Last Admin: 03/27/19 17:38 Dose: 20 mg Admin: 03/26/19 17:47 Dose: 20 mg Docusate Sodium (Colace) 100 mg PO BID [facility] Last Admin: 03/27/19 20:48 Dose: 100 mg Admin: 03/27/19 10:08 Dose: 100 mg Admin: 03/26/19 20:21 Dose: 100 mg Famotidine (Pepcid) 20 mg PO Q12H [facility] Last Admin: 03/27/19 20:48 Dose: 20 mg Admin: 03/27/19 10:04 Dose: 20 mg Admin: 03/26/19 20:21 Dose: 20 mg Hydrochlorothiazide (Hydrochlorothiazide) 12.5 mg PO DAILY [facility] Last Admin: 03/27/19 10:05 Dose: 12.5 mg Losartan Potassium (Cozaar) 50 mg PO DAILY [facility] Last Admin: 03/27/19 10:08 Dose: 50 mg Magnesium Hydroxide (Milk Of Magnesia) 30 ml PO BID PRN PRN Reason: Constipation Magnesium Oxide (Magnesium Oxide) 400 mg PO QPM [facility] Last Admin: 03/27/19 17:37 Dose: 400 mg Admin: 03/26/19 17:47 Dose: 400 mg Morphine Sulfate (Morphine) 2 mg IVPUSH Q2H PRN PRN Reason: Breakthrough Pain Multivitamins (Thera) 1 each PO QPM [facility] Last Admin: 03/27/19 17:39 Dose: 1 each Admin: 03/26/19 17:47 Dose: 1 each Naloxone HCl (Narcan) 0.1 mg IVPUSH Q5M PRN PRN Reason: Oversedation Ondansetron HCl (Zofran) 4 mg IVPUSH Q6H PRN PRN Reason: Nausea/Vomiting Last Admin: 03/27/19 11:06 Dose: 4 mg Oxycodone/Acetaminophen (Percocet 325-5 Mg) 1 - 2 tab PO Q4H PRN PRN Reason: Pain Last Admin: 03/28/19 06:26 Dose: 2 tab Admin: 03/27/19 20:48 Dose: 2 tab Admin: 03/27/19 16:44 Dose: 2 tab Admin: 03/27/19 10:00 Dose: 2 tab Admin: 03/27/19 03:34 Dose: 2 tab Admin: 03/26/19 20:20 Dose: 2 tab Admin: 03/26/19 14:01 Dose: 1 tab Potassium Gluconate (99 Mg) 0 each PO DAILY [facility] Last Admin: 03/27/19 10:11 Dose: Senna (Senna) 8.6 mg PO BID PRN PRN Reason: Constipation Trazodone HCl (Trazodone) 50 mg PO BEDTIME [facility] Last Admin: 03/27/19 20:48 Dose: 50 mg Admin: 03/26/19 20:21 Dose: 50 mg - Assessment Assessment (Free Text/Narrative):: POD#2 - right TKA - Plan Plan (Free Text/Narrative):: 1. O2 use managed by Hospitalist service. Further orders per Hospitalist service. 2. Discharge to home today if cleared by Hospitalist service. 3. 325mg ASA PO BID, frequent mobility, TEDs. 4. Outpatient therapy. The pt's case was discussed with Dr. Mcintyre.
--- NOTE | 2019-03-28 07:38 | PCM.CONSN ---
- General Info Date of Service: 03/28/19 Admission Dx/Problem (Free Text): Admission Diagnosis/Problem Admission Diagnosis/Problem Osteoarthritis of knee Functional Status: Reports: Pain Controlled, Tolerating Diet, Ambulating, Urinating, Incentive Spirometry. Denies: New Symptoms - Review of Systems General: Reports: No Symptoms. Denies: Fever, Weakness, Fatigue, Malaise, Chills HEENT: Reports: No Symptoms. Denies: Headaches, Sore Throat Pulmonary: Reports: Shortness of Breath. Denies: Pleuritic Chest Pain, Cough, Sputum, Wheezing Cardiovascular: Reports: Dyspnea on Exertion, Lightheadedness (mild ). Denies: Chest Pain, Palpitations Gastrointestinal: Reports: No Symptoms. Denies: Abdominal Pain, Constipation, Diarrhea, Nausea, Vomiting Genitourinary: Reports: No Symptoms. Denies: Pain Musculoskeletal: Reports: Leg Pain Skin: Reports: No Symptoms. Denies: Cyanosis Neurological: Reports: Difficulty Walking, Gait Disturbance Psychiatric: Reports: No Symptoms - Patient Data Vitals - Most Recent: Last Vital Signs Temp 97.9 F 03/27/19 20:59 Pulse 73 03/27/19 20:59 Resp 20 03/27/19 20:59 BP 110/91 H 03/27/19 20:59 Pulse Ox 90 L 03/28/19 06:28 Weight - Most Recent: 193 lb I&O - Last 24 Hours: Intake & Output 03/27/19 03/28/19 03/28/19 22:59 06:59 14:59 Intake Total 1650 Output Total 700 Balance 950 Lab Results Last 24 Hours: Laboratory Results - last 24 hr 03/27/19 03/28/19 03/28/19 Range/Units 05:18 05:10 05:10 WBC 9.11 (3.98-10.04) K/mm3 RBC 3.93 L (3.98-5.22) M/mm3 Hgb 10.2 L (11.2-15.7) gm/dl Hct 32.9 L (34.1-44.9) % MCV 83.7 (79.4-94.8) fl MCH 26.0 (25.6-32.2) pg MCHC 31.0 L (32.2-35.5) g/dl RDW Std Deviation 48.2 H (36.4-46.3) fL Plt Count 273 (182-369) K/mm3 MPV 9.5 (9.4-12.3) fl Neut % (Auto) 75.0 H (34.0-71.1) % Lymph % (Auto) 10.4 L (19.3-51.7) % [place] % (Auto) 13.1 H (4.7-12.5) % Eos % (Auto) 1.0 (0.7-5.8) Baso % (Auto) 0.2 (0.1-1.2) % Neut # (Auto) 6.83 H (1.56-6.13) K/mm3 Lymph # (Auto) 0.95 L (1.18-3.74) K/mm3 [place] # (Auto) 1.19 H (0.24-0.36) K/mm3 Eos # (Auto) 0.09 (0.04-0.36) K/mm3 Baso # (Auto) 0.02 (0.01-0.08) K/mm3 Sodium 131 L 127 L (136-145) mEq/L Potassium 4.6 4.1 (3.5-5.1) mEq/L Chloride 97 L 92 L (98-107) mEq/L Carbon Dioxide 30 31 (21-32) mEq/L Anion Gap 8.6 8.1 (5-15) BUN 12 11 (7-18) mg/dL Creatinine 0.7 0.6 (0.55-1.02) mg/dL Est Cr Clr Drug Dosing 73.28 85.50 mL/min Estimated GFR (MDRD) > 60 > 60 (>60) mL/min BUN/Creatinine Ratio 17.1 18.3 H (14-18) Glucose 126 H 106 (83-115) mg/dL Calcium 9.9 10.1 (8.5-10.1) mg/dL Total Bilirubin 0.5 0.5 (0.2-1.0) mg/dL AST 14 L 31 (15-37) U/L ALT 31 47 (14-59) U/L Alkaline Phosphatase 56 63 (46-116) U/L Total Protein 5.8 L 5.9 L (6.4-8.2) g/dl Albumin 2.7 L 2.6 L (3.4-5.0) g/dl Globulin 3.1 3.3 gm/dL Albumin/Globulin Ratio 0.9 L 0.8 L (1-2) Med Orders - Current: Current Medications Aspirin (Ecotrin) 325 mg PO BID [facility] Last Admin: 03/27/19 20:48 Dose: 325 mg Bisacodyl (Dulcolax) 5 mg PO DAILY PRN PRN Reason: Constipation Buspirone HCl (Buspar) 5 mg PO TID [facility] Last Admin: 03/27/19 20:48 Dose: 5 mg Calcium Carbonate (Calcium Carbonate/Vitamin D 600 Mg-200 Unit) 1 tab PO QPM [facility] Last Admin: 03/27/19 17:38 Dose: 1 tab Cholecalciferol (Vitamin D3) 5,000 unit PO QPM [facility] Last Admin: 03/27/19 17:39 Dose: 5,000 unit Citalopram Hydrobromide (Celexa) 20 mg PO QPM [facility] Last Admin: 03/27/19 17:38 Dose: 20 mg Docusate Sodium (Colace) 100 mg PO BID [facility] Last Admin: 03/27/19 20:48 Dose: 100 mg Famotidine (Pepcid) 20 mg PO Q12H [facility] Last Admin: 03/27/19 20:48 Dose: 20 mg Hydrochlorothiazide (Hydrochlorothiazide) 12.5 mg PO DAILY [facility] Last Admin: 03/27/19 10:05 Dose: 12.5 mg Losartan Potassium (Cozaar) 50 mg PO DAILY [facility] Last Admin: 03/27/19 10:08 Dose: 50 mg Magnesium Hydroxide (Milk Of Magnesia) 30 ml PO BID PRN PRN Reason: Constipation Magnesium Oxide (Magnesium Oxide) 400 mg PO QPM [facility] Last Admin: 03/27/19 17:37 Dose: 400 mg Morphine Sulfate (Morphine) 2 mg IVPUSH Q2H PRN PRN Reason: Breakthrough Pain Multivitamins (Thera) 1 each PO QPM [facility] Last Admin: 03/27/19 17:39 Dose: 1 each Naloxone HCl (Narcan) 0.1 mg IVPUSH Q5M PRN PRN Reason: Oversedation Ondansetron HCl (Zofran) 4 mg IVPUSH Q6H PRN PRN Reason: Nausea/Vomiting Last Admin: 03/27/19 11:06 Dose: 4 mg Oxycodone/Acetaminophen (Percocet 325-5 Mg) 1 - 2 tab PO Q4H PRN PRN Reason: Pain Last Admin: 03/28/19 06:26 Dose: 2 tab Potassium Gluconate (99 Mg) 0 each PO DAILY [facility] Last Admin: 03/27/19 10:11 Dose: Not Given Senna (Senna) 8.6 mg PO BID PRN PRN Reason: Constipation Trazodone HCl (Trazodone) 50 mg PO BEDTIME [facility] Last Admin: 03/27/19 20:48 Dose: 50 mg Discontinued Medications Acetaminophen (Tylenol) 975 mg PO ONETIME ONE Stop: 03/26/19 08:01 Last Admin: 03/26/19 08:09 Dose: 975 mg Bupivacaine HCl (Sensorcaine-Mpf 0.25%) Confirm Administered Dose 10 ml .ROUTE .STK-MED ONE Stop: 03/26/19 08:10 Last Admin: 03/26/19 10:59 Dose: 25 ml Bupivacaine HCl (Sensorcaine-Mpf 0.25%) Confirm Administered Dose 20 ml .ROUTE .STK-MED ONE Stop: 03/26/19 08:40 Cefazolin Sodium (Ancef) Confirm Administered Dose 2 gm .ROUTE .STK-MED ONE Stop: 03/26/19 08:09 Last Admin: 03/26/19 10:51 Dose: 2 gm Morphine Sulfate 8 mg/Epinephrine HCl 0.3 mg/Cefuroxime Sodium 750 mg/Ketorolac Tromethamine 30 mg/Sodium Chloride 27.9 ml 0 mg .XX ONETIME ONE Stop: 03/26/19 08:01 Last Admin: 03/26/19 10:58 Dose: 788.3 mg Ephedrine Sulfate (Ephedrine In Ns) Confirm Administered Dose 25 mg .ROUTE .STK- MED ONE Stop: 03/26/19 10:04 Ephedrine Sulfate (Ephedrine In Ns) Confirm Administered Dose 25 mg .ROUTE .STK- MED ONE Stop: 03/26/19 10:27 Epinephrine HCl (Adrenalin) Confirm Administered Dose 1 mg .ROUTE .STK-MED ONE Stop: 03/26/19 09:16 Fentanyl (Sublimaze) Confirm Administered Dose 100 mcg .ROUTE .STK-MED ONE Stop: 03/26/19 07:45 Fentanyl (Sublimaze) 50 mcg IVPUSH Q5M PRN PRN Reason: Pain Stop: 03/26/19 18:00 Furosemide (Lasix) 20 mg IVPUSH NOW ONE Stop: 03/27/19 14:01 Last Admin: 03/27/19 14:40 Dose: 20 mg Lactated Ringer's (Ringers, Lactated) 1,000 mls @ 125 mls/hr IV ASDIRECTED [facility] Stop: 03/26/19 23:00 Last Admin: 03/26/19 08:15 Dose: 125 mls/hr Cefazolin Sodium/Dextrose 2 gm (/ Premix) 50 mls @ 100 mls/hr IV Q8H [facility] Stop: 03/27/19 08:59 Lidocaine HCl (Xylocaine-Mpf 1%) Confirm Administered Dose 4 mls @ as directed .ROUTE .STK-MED ONE Stop: 03/26/19 07:43 Lactated Ringer's (Ringers, Lactated) Confirm Administered Dose 1,000 mls @ as directed .ROUTE .STK-MED ONE Stop: 03/26/19 09:57 Cefazolin Sodium/Dextrose 2 gm (/ Premix) 50 mls @ 100 mls/hr IV Q8H [facility] Stop: 03/27/19 11:59 Last Admin: 03/27/19 10:30 Dose: 100 mls/hr Iodine (Iodine 2% Mild Tincture) Confirm Administered Dose 30 ml .ROUTE .STK- MED ONE Stop: 03/26/19 08:10 Last Admin: 03/26/19 10:50 Dose: 18 ml Ketorolac Tromethamine (Toradol) 15 mg IVPUSH Q6H PRN PRN Reason: Pain Last Admin: 03/28/19 06:26 Dose: 15 mg Ketorolac Tromethamine (Toradol) Confirm Administered Dose 30 mg .ROUTE .STK- MED ONE Stop: 03/26/19 10:27 Lidocaine/Sodium Bicarbonate (Buffered Lidocaine 1% In Ns 8.4%) 0.25 ml IDERM ONETIME PRN PRN Reason: Prior to IV Start Stop: 03/26/19 18:00 Last Admin: 03/26/19 08:15 Dose: 0.25 ml Midazolam HCl (Versed 1 Mg/Ml) Confirm Administered Dose 2 mg .ROUTE .STK-MED ONE Stop: 03/26/19 07:44 Ondansetron HCl (Zofran) Confirm Administered Dose 4 mg .ROUTE .STK-MED ONE Stop: 03/26/19 10:28 Ondansetron HCl (Zofran) 4 mg IVPUSH ONETIME PRN PRN Reason: Nausea/Vomiting Stop: 03/26/19 18:00 Oxycodone HCl (Oxycontin) 10 mg PO ONETIME ONE Stop: 03/26/19 08:01 Last Admin: 03/26/19 08:09 Dose: 10 mg Pregabalin (Lyrica) 50 mg PO ONETIME ONE Stop: 03/26/19 08:01 Last Admin: 03/26/19 08:09 Dose: 50 mg Propofol (Diprivan 20 Ml) Confirm Administered Dose 200 mg .ROUTE .STK-MED ONE Stop: 03/26/19 07:43 Ropivacaine (Naropin 0.5%) Confirm Administered Dose 30 ml .ROUTE .STK-MED ONE Stop: 03/26/19 09:16 Sodium Chloride (Saline Flush) 10 ml FLUSH ASDIRECTED PRN PRN Reason: Keep Vein Open Stop: 03/26/19 18:00 Tranexamic Acid (Cyklokapron) Confirm Administered Dose 1,000 mg .ROUTE .STK- MED ONE Stop: 03/26/19 08:09 Last Admin: 03/26/19 11:04 Dose: 1,000 mg Vancomycin HCl (Vancomycin) Confirm Administered Dose 1 gm .ROUTE .STK-MED ONE Stop: 03/26/19 08:09 Last Admin: 03/26/19 11:00 Dose: 1 gm - Exam Quality Assessment: Supplemental Oxygen (2L), DVT Prophylaxis General: Alert, Oriented, Cooperative, No Acute Distress HEENT: Pupils Equal, Pupils Reactive, Mucous Membr. Moist/[place] Neck: Supple, Trachea Midline Lungs: Clear to Auscultation, Normal Respiratory Effort Cardiovascular: Regular Rate, Regular Rhythm GI/Abdominal Exam: Normal Bowel Sounds, Soft, Non-Tender, No Distention, No Abnormal Bruit (Female) Exam: Deferred Back Exam: Normal Inspection, Full Range of Motion Extremities: Normal Capillary Refill, Leg Pain, Limited Range of Motion, Other ( Bandage in place on right leg. Cooling pack in place. ) Skin: Warm, Dry, Intact Wound/Incisions: Dressing Dry and Intact Neurological: No New Focal Deficit Psy/Mental Status: Alert, Normal Affect, Normal Mood Sepsis Event Note - Evaluation Sepsis Screening Result: No Definite Risk - Focused Exam Vital Signs: Vital Signs Temp Pulse Resp BP Pulse Ox Pulse Ox Pulse Ox 03/28/19 06:28 90 L 03/28/19 06:20 84 L 03/28/19 05:59 93 L 03/27/19 20:59 97.9 F 73 20 110/91 H 94 L 03/27/19 20:21 94 L 03/27/19 19:48 77 92 L 03/27/19 19:46 80 82 L Date Exam was Performed: 03/28/19 Time Exam was Performed: 14:40 Consult PN Assessment/Plan POD#: 2 (1) S/P total knee arthroplasty SNOMED Code(s): 7270369636260, 202796294, 8577670061485 Code(s): Z96.659 - PRESENCE OF UNSPECIFIED ARTIFICIAL KNEE JOINT Priority: High Current Visit: Yes Qualifiers: Laterality: right Qualified Code(s): Z96.651 - Presence of right artificial knee joint (2) Osteoarthritis SNOMED Code(s): 603444037 Code(s): M19.90 - UNSPECIFIED OSTEOARTHRITIS, UNSPECIFIED SITE Priority: High Current Visit: Yes Qualifiers: Osteoarthritis location: knee Osteoarthritis type: primary Laterality: right Qualified Code(s): M17.11 - Unilateral primary osteoarthritis, right knee (3) Postoperative hypoxia SNOMED Code(s): 627679555 Code(s): R09.02 - HYPOXEMIA; Z98.890 - OTHER SPECIFIED POSTPROCEDURAL STATES Priority: High Current Visit: Yes (4) Shortness of breath SNOMED Code(s): 917413925 Code(s): R06.02 - SHORTNESS OF BREATH Priority: High Current Visit: Yes (5) HTN (hypertension) SNOMED Code(s): 73706444 Code(s): I10 - ESSENTIAL (PRIMARY) HYPERTENSION Priority: Low Current Visit: No Qualifiers: Hypertension type: unspecified Qualified Code(s): I10 - Essential (primary ) hypertension (6) Chronic SI joint pain SNOMED Code(s): 262431908 Code(s): M53.3 - SACROCOCCYGEAL DISORDERS, NOT ELSEWHERE CLASSIFIED; G89.29 - OTHER CHRONIC PAIN Priority: Low Current Visit: No (7) Depression SNOMED Code(s): 52970833 Code(s): F32.9 - MAJOR DEPRESSIVE DISORDER, SINGLE EPISODE, UNSPECIFIED Priority: Low Current Visit: No Qualifiers: Depression Type: other depression Qualified Code(s): F32.89 - Other specified depressive episodes (8) Insomnia SNOMED Code(s): 415195408 Code(s): G47.00 - INSOMNIA, UNSPECIFIED Priority: Low Current Visit: No Qualifiers: Insomnia type: unspecified Qualified Code(s): G47.00 - Insomnia, unspecified (9) Thrombocytosis SNOMED Code(s): 2498382 Code(s): D47.3 - ESSENTIAL (HEMORRHAGIC) THROMBOCYTHEMIA Priority: Low Current Visit: No (10) Hypercalcemia SNOMED Code(s): 93508669 Code(s): E83.52 - HYPERCALCEMIA Priority: Low Current Visit: No (11) Atelectasis of both lungs SNOMED Code(s): 33680674 Code(s): J98.11 - ATELECTASIS Priority: High Current Visit: Yes (12) Pulmonary vascular congestion SNOMED Code(s): 880674998 Code(s): R09.89 - OTH SYMPTOMS AND SIGNS INVOLVING THE CIRC AND RESP SYSTEMS Priority: High Current Visit: Yes (13) Hyponatremia SNOMED Code(s): 07967335 Code(s): E87.1 - HYPO-OSMOLALITY AND HYPONATREMIA Priority: High Current Visit: Yes Problem List Initiated/Reviewed/Updated: Yes My Orders Last 24 Hours: My Active Orders 03/27/19 12:50 Evaluate for Home Oxygen [RT Evaluate for Home Oxygen] [RC] Click to Edit 03/27/19 13:54 Consult to Respiratory Therapy [Respiratory Care Assess and Treatment] [CONS] Routine Plan: I/P: Acute: S/P right total knee arthroplasty - post-operative day 2 -DVT prophylaxis and pain management per primary care team -PT/OT -IS/RT -Monitor oxygen saturation -Titrate oxygen as needed - 2L currently -Home medications reviewed -Vital signs stable -Monitor labs -Pre-operative Hgb was 14.3; Now 10.5 -Pre-operative GFR was 77; now >60 -Pre-operative platelets were 439; Now 301 -Pre-operative calcium was 10.4; Now 9.9 Osteoarthritis of right knee -Pain management per primary care team Post-operative hypoxia -Unable to wean of off oxygen -Reports dyspnea on exertion -2 view CXR shows bibasilar atelectasis, pulmonary vascular congestion -Continue to use IS -Lasix 20mg IVP one time on 03/27/18 -Easy-pap/RT -Home O2 - 2L at all times, 4L with activity -Follow-up with PCP after discharge. Hyponatremia -Sodium pre-operatively 137; Now 131-->127-->125 -Urine sodium/creatinine -Home medications reviewed -IV fluid bolus as ordered -Follow-up with PCP after discharge -Repeat BMP, magnesium in AM Chronic: HTN Chronic SI joint pain Depression Insomnia Thrombocytosis Hypercalcemia Plan: Upgraded to observation status CM for discharge planning GI prophylaxis Home medications as indicated Other orders as listed above Routine AM labs She is a full code. Her PCP is Dr. Lainez Thank you for allowing us to participate in the care of this patient!!
[2019-03-28] MEDS: Hydrochlorothiazide 12.5 MG Cap PO SCH (08:09)
[2019-03-28] MEDS: Famotidine 20 MG Tab PO SCH ×2 (08:10→20:41)
[2019-03-28] MEDS: busPIRone 5 MG Tab PO SCH ×3 (08:11→20:41)
[2019-03-28] MEDS: Losartan 25 MG Tab PO SCH (08:12)
[2019-03-28] MEDS: Aspirin 325 MG Tab.EC PO SCH ×2 (08:12→20:42)
[2019-03-28] MEDS: Docusate Sodium 100 MG Cap PO SCH ×2 (08:13→20:41)
[2019-03-28] MEDS ORDERED: Sodium Chloride 0.9% 500 ML IV ONE ×2 (11:04→20:00)
[2019-03-28] MEDS: Multivitamins,Therapeutic Tab PO SCH (17:09)
[2019-03-28] MEDS: Cholecalciferol (Vitamin D3) 5,000 UNIT Tab PO SCH (17:09)
[2019-03-28] MEDS: Magnesium Oxide 400 MG Tab PO SCH (17:09)
[2019-03-28] MEDS: Calcium Carbonate/Vitamin D3 600 MG-200 Units Tab PO SCH (17:09)
[2019-03-28] MEDS: Citalopram 20 MG Tab PO SCH (17:09)
[2019-03-28] MEDS: traZODone 50 MG Tab PO SCH (20:42)
[2019-03-29] MEDS: Acetaminophen/oxyCODONE 325-5 MG Tab PO PRN ×4 (06:35→21:53)
--- NOTE | 2019-03-29 08:10 | PCM.CONSN ---
- General Info Date of Service: 03/29/19 Admission Dx/Problem (Free Text): Admission Diagnosis/Problem Admission Diagnosis/Problem Osteoarthritis of knee Functional Status: Reports: Pain Controlled, Tolerating Diet, Ambulating, Urinating, Incentive Spirometry. Denies: New Symptoms - Review of Systems General: Reports: No Symptoms. Denies: Fever, Weakness, Fatigue, Malaise, Chills HEENT: Reports: No Symptoms. Denies: Headaches, Sore Throat Pulmonary: Reports: No Symptoms. Denies: Shortness of Breath, Cough Cardiovascular: Reports: No Symptoms. Denies: Chest Pain, Palpitations, Dyspnea on Exertion Gastrointestinal: Reports: No Symptoms. Denies: Abdominal Pain, Constipation, Diarrhea, Nausea, Vomiting Genitourinary: Reports: No Symptoms. Denies: Pain Musculoskeletal: Reports: Leg Pain Skin: Reports: No Symptoms. Denies: Cyanosis Neurological: Reports: Difficulty Walking, Gait Disturbance. Denies: Confusion , Seizure, Weakness Psychiatric: Reports: No Symptoms - Patient Data Vitals - Most Recent: Last Vital Signs Temp 97.9 F 03/29/19 04:00 Pulse 78 03/29/19 06:06 Resp 16 03/29/19 04:00 BP 119/81 03/29/19 04:00 Pulse Ox 94 L 03/29/19 06:06 Weight - Most Recent: 205 lb 8 oz I&O - Last 24 Hours: Intake & Output 03/28/19 03/29/19 03/29/19 22:59 06:59 14:59 Intake Total 2220 1950 Output Total 250 2600 Balance 1970 -650 Lab Results Last 24 Hours: Laboratory Results - last 24 hr 03/28/19 03/29/19 Range/Units 10:05 06:20 Sodium 134 L (136-145) mEq/L Potassium 4.6 (3.5-5.1) mEq/L Chloride 98 (98-107) mEq/L Carbon Dioxide 32 (21-32) mEq/L Anion Gap 8.6 (5-15) BUN 10 (7-18) mg/dL Creatinine 0.5 L (0.55-1.02) mg/dL Est Cr Clr Drug Dosing 102.60 mL/min Estimated GFR (MDRD) > 60 (>60) mL/min BUN/Creatinine Ratio 20.0 H (14-18) Glucose 96 (83-115) mg/dL Calcium 9.9 (8.5-10.1) mg/dL Magnesium 1.9 (1.8-2.4) mg/dl Ur Random Creatinine 84.7 (30.0-125.0) mg/dL Ur Random Sodium 9 L (40-220) mEq/L Med Orders - Current: Current Medications Aspirin (Ecotrin) 325 mg PO BID [facility] Last Admin: 03/28/19 20:42 Dose: 325 mg Bisacodyl (Dulcolax) 5 mg PO DAILY PRN PRN Reason: Constipation Last Admin: 03/28/19 20:41 Dose: 5 mg Buspirone HCl (Buspar) 5 mg PO TID [facility] Last Admin: 03/28/19 20:41 Dose: 5 mg Calcium Carbonate (Calcium Carbonate/Vitamin D 600 Mg-200 Unit) 1 tab PO QPM [facility] Last Admin: 03/28/19 17:09 Dose: 1 tab Cholecalciferol (Vitamin D3) 5,000 unit PO QPM [facility] Last Admin: 03/28/19 17:09 Dose: 5,000 unit Citalopram Hydrobromide (Celexa) 20 mg PO QPM [facility] Last Admin: 03/28/19 17:09 Dose: 20 mg Docusate Sodium (Colace) 100 mg PO BID [facility] Last Admin: 03/28/19 20:41 Dose: 100 mg Famotidine (Pepcid) 20 mg PO Q12H [facility] Last Admin: 03/28/19 20:41 Dose: 20 mg Losartan Potassium (Cozaar) 50 mg PO DAILY [facility] Last Admin: 03/28/19 08:12 Dose: 50 mg Magnesium Hydroxide (Milk Of Magnesia) 30 ml PO BID PRN PRN Reason: Constipation Last Admin: 03/29/19 06:37 Dose: 30 ml Magnesium Oxide (Magnesium Oxide) 400 mg PO QPM [facility] Last Admin: 03/28/19 17:09 Dose: 400 mg Morphine Sulfate (Morphine) 2 mg IVPUSH Q2H PRN PRN Reason: Breakthrough Pain Multivitamins (Thera) 1 each PO QPM [facility] Last Admin: 03/28/19 17:09 Dose: 1 each Naloxone HCl (Narcan) 0.1 mg IVPUSH Q5M PRN PRN Reason: Oversedation Ondansetron HCl (Zofran) 4 mg IVPUSH Q6H PRN PRN Reason: Nausea/Vomiting Last Admin: 03/27/19 11:06 Dose: 4 mg Oxycodone/Acetaminophen (Percocet 325-5 Mg) 1 - 2 tab PO Q4H PRN PRN Reason: Pain Last Admin: 03/29/19 06:35 Dose: 2 tab Potassium Gluconate (99 Mg) 0 each PO DAILY [facility] Last Admin: 03/28/19 08:14 Dose: Not Given Senna (Senna) 8.6 mg PO BID PRN PRN Reason: Constipation Trazodone HCl (Trazodone) 50 mg PO BEDTIME [facility] Last Admin: 03/28/19 20:42 Dose: 50 mg Discontinued Medications Acetaminophen (Tylenol) 975 mg PO ONETIME ONE Stop: 03/26/19 08:01 Last Admin: 03/26/19 08:09 Dose: 975 mg Bupivacaine HCl (Sensorcaine-Mpf 0.25%) Confirm Administered Dose 10 ml .ROUTE .STK-MED ONE Stop: 03/26/19 08:10 Last Admin: 03/26/19 10:59 Dose: 25 ml Bupivacaine HCl (Sensorcaine-Mpf 0.25%) Confirm Administered Dose 20 ml .ROUTE .STK-MED ONE Stop: 03/26/19 08:40 Cefazolin Sodium (Ancef) Confirm Administered Dose 2 gm .ROUTE .STK-MED ONE Stop: 03/26/19 08:09 Last Admin: 03/26/19 10:51 Dose: 2 gm Morphine Sulfate 8 mg/Epinephrine HCl 0.3 mg/Cefuroxime Sodium 750 mg/Ketorolac Tromethamine 30 mg/Sodium Chloride 27.9 ml 0 mg .XX ONETIME ONE Stop: 03/26/19 08:01 Last Admin: 03/26/19 10:58 Dose: 788.3 mg Ephedrine Sulfate (Ephedrine In Ns) Confirm Administered Dose 25 mg .ROUTE .STK- MED ONE Stop: 03/26/19 10:04 Ephedrine Sulfate (Ephedrine In Ns) Confirm Administered Dose 25 mg .ROUTE .STK- MED ONE Stop: 03/26/19 10:27 Epinephrine HCl (Adrenalin) Confirm Administered Dose 1 mg .ROUTE .STK-MED ONE Stop: 03/26/19 09:16 Fentanyl (Sublimaze) Confirm Administered Dose 100 mcg .ROUTE .STK-MED ONE Stop: 03/26/19 07:45 Fentanyl (Sublimaze) 50 mcg IVPUSH Q5M PRN PRN Reason: Pain Stop: 03/26/19 18:00 Furosemide (Lasix) 20 mg IVPUSH NOW ONE Stop: 03/27/19 14:01 Last Admin: 03/27/19 14:40 Dose: 20 mg Hydrochlorothiazide (Hydrochlorothiazide) 12.5 mg PO DAILY [facility] Last Admin: 03/28/19 08:09 Dose: 12.5 mg Lactated Ringer's (Ringers, Lactated) 1,000 mls @ 125 mls/hr IV ASDIRECTED [facility] Stop: 03/26/19 23:00 Last Admin: 03/26/19 08:15 Dose: 125 mls/hr Cefazolin Sodium/Dextrose 2 gm (/ Premix) 50 mls @ 100 mls/hr IV Q8H [facility] Stop: 03/27/19 08:59 Lidocaine HCl (Xylocaine-Mpf 1%) Confirm Administered Dose 4 mls @ as directed .ROUTE .STK-MED ONE Stop: 03/26/19 07:43 Lactated Ringer's (Ringers, Lactated) Confirm Administered Dose 1,000 mls @ as directed .ROUTE .STK-MED ONE Stop: 03/26/19 09:57 Cefazolin Sodium/Dextrose 2 gm (/ Premix) 50 mls @ 100 mls/hr IV Q8H [facility] Stop: 03/27/19 11:59 Last Admin: 03/27/19 10:30 Dose: 100 mls/hr Sodium Chloride (Normal Saline) 500 mls @ 999 mls/hr IV .BOLUS ONE Stop: 03/28/19 11:34 Last Admin: 03/28/19 12:00 Dose: 999 mls/hr Sodium Chloride (Normal Saline) 500 mls @ 999 mls/min IV .BOLUS ONE Stop: 03/28/19 20:01 Last Admin: 03/28/19 20:37 Dose: 999 mls/min Iodine (Iodine 2% Mild Tincture) Confirm Administered Dose 30 ml .ROUTE .STK- MED ONE Stop: 03/26/19 08:10 Last Admin: 03/26/19 10:50 Dose: 18 ml Ketorolac Tromethamine (Toradol) 15 mg IVPUSH Q6H PRN PRN Reason: Pain Last Admin: 03/28/19 06:26 Dose: 15 mg Ketorolac Tromethamine (Toradol) Confirm Administered Dose 30 mg .ROUTE .STK- MED ONE Stop: 03/26/19 10:27 Lidocaine/Sodium Bicarbonate (Buffered Lidocaine 1% In Ns 8.4%) 0.25 ml IDERM ONETIME PRN PRN Reason: Prior to IV Start Stop: 03/26/19 18:00 Last Admin: 03/26/19 08:15 Dose: 0.25 ml Midazolam HCl (Versed 1 Mg/Ml) Confirm Administered Dose 2 mg .ROUTE .STK-MED ONE Stop: 03/26/19 07:44 Ondansetron HCl (Zofran) Confirm Administered Dose 4 mg .ROUTE .STK-MED ONE Stop: 03/26/19 10:28 Ondansetron HCl (Zofran) 4 mg IVPUSH ONETIME PRN PRN Reason: Nausea/Vomiting Stop: 03/26/19 18:00 Oxycodone HCl (Oxycontin) 10 mg PO ONETIME ONE Stop: 03/26/19 08:01 Last Admin: 03/26/19 08:09 Dose: 10 mg Pregabalin (Lyrica) 50 mg PO ONETIME ONE Stop: 03/26/19 08:01 Last Admin: 03/26/19 08:09 Dose: 50 mg Propofol (Diprivan 20 Ml) Confirm Administered Dose 200 mg .ROUTE .STK-MED ONE Stop: 03/26/19 07:43 Ropivacaine (Naropin 0.5%) Confirm Administered Dose 30 ml .ROUTE .STPhilo-MED ONE Stop: 03/26/19 09:16 Sodium Chloride (Saline Flush) 10 ml FLUSH ASDIRECTED PRN PRN Reason: Keep Vein Open Stop: 03/26/19 18:00 Tranexamic Acid (Cyklokapron) Confirm Administered Dose 1,000 mg .ROUTE .STK- MED ONE Stop: 03/26/19 08:09 Last Admin: 03/26/19 11:04 Dose: 1,000 mg Vancomycin HCl (Vancomycin) Confirm Administered Dose 1 gm .ROUTE .STK-MED ONE Stop: 03/26/19 08:09 Last Admin: 03/26/19 11:00 Dose: 1 gm - Exam Quality Assessment: Supplemental Oxygen (2L), DVT Prophylaxis General: Alert, Oriented, Cooperative, No Acute Distress HEENT: Pupils Equal, Pupils Reactive, Mucous Membr. Moist/[place] Neck: Supple, Trachea Midline Lungs: Clear to Auscultation, Normal Respiratory Effort Cardiovascular: Regular Rate, Regular Rhythm GI/Abdominal Exam: Normal Bowel Sounds, Soft, Non-Tender, No Distention, No Abnormal Bruit (Female) Exam: Deferred Back Exam: Normal Inspection, Full Range of Motion Extremities: Normal Capillary Refill, Leg Pain, Limited Range of Motion, Other Skin: Warm, Dry, Intact Neurological: No New Focal Deficit Psy/Mental Status: Alert, Normal Affect, Normal Mood Sepsis Event Note - Evaluation Sepsis Screening Result: No Definite Risk - Focused Exam Vital Signs: Vital Signs Temp Pulse Resp BP Pulse Ox Pulse Ox 03/29/19 06:06 78 94 L 03/29/19 04:00 97.9 F 77 16 119/81 91 L 03/29/19 00:46 129/72 03/28/19 23:46 98.4 F 89 16 170/101 H 94 L 03/28/19 20:35 92 L 03/28/19 20:23 97.9 F 72 16 118/74 93 L Date Exam was Performed: 03/29/19 Time Exam was Performed: 11:16 Consult PN Assessment/Plan POD#: 3 (1) S/P total knee arthroplasty SNOMED Code(s): 0468050456310, 228329842, 1424120208206 Code(s): Z96.659 - PRESENCE OF UNSPECIFIED ARTIFICIAL KNEE JOINT Priority: High Current Visit: Yes Qualifiers: Laterality: right Qualified Code(s): Z96.651 - Presence of right artificial knee joint (2) Osteoarthritis SNOMED Code(s): 707720684 Code(s): M19.90 - UNSPECIFIED OSTEOARTHRITIS, UNSPECIFIED SITE Priority: High Current Visit: Yes Qualifiers: Osteoarthritis location: knee Osteoarthritis type: primary Laterality: right Qualified Code(s): M17.11 - Unilateral primary osteoarthritis, right knee (3) Postoperative hypoxia SNOMED Code(s): 149783652 Code(s): R09.02 - HYPOXEMIA; Z98.890 - OTHER SPECIFIED POSTPROCEDURAL STATES Priority: High Current Visit: Yes (4) Shortness of breath SNOMED Code(s): 185475883 Code(s): R06.02 - SHORTNESS OF BREATH Priority: High Current Visit: Yes (5) HTN (hypertension) SNOMED Code(s): 09947856 Code(s): I10 - ESSENTIAL (PRIMARY) HYPERTENSION Priority: Low Current Visit: No Qualifiers: Hypertension type: unspecified Qualified Code(s): I10 - Essential (primary ) hypertension (6) Chronic SI joint pain SNOMED Code(s): 790272596 Code(s): M53.3 - SACROCOCCYGEAL DISORDERS, NOT ELSEWHERE CLASSIFIED; G89.29 - OTHER CHRONIC PAIN Priority: Low Current Visit: No (7) Depression SNOMED Code(s): 54276707 Code(s): F32.9 - MAJOR DEPRESSIVE DISORDER, SINGLE EPISODE, UNSPECIFIED Priority: Low Current Visit: No Qualifiers: Depression Type: other depression Qualified Code(s): F32.89 - Other specified depressive episodes (8) Insomnia SNOMED Code(s): 923976838 Code(s): G47.00 - INSOMNIA, UNSPECIFIED Priority: Low Current Visit: No Qualifiers: Insomnia type: unspecified Qualified Code(s): G47.00 - Insomnia, unspecified (9) Thrombocytosis SNOMED Code(s): 8884029 Code(s): D47.3 - ESSENTIAL (HEMORRHAGIC) THROMBOCYTHEMIA Priority: Low Current Visit: No (10) Hypercalcemia SNOMED Code(s): 08570626 Code(s): E83.52 - HYPERCALCEMIA Priority: Low Current Visit: No (11) Atelectasis of both lungs SNOMED Code(s): 83874896 Code(s): J98.11 - ATELECTASIS Priority: High Current Visit: Yes (12) Pulmonary vascular congestion SNOMED Code(s): 150603671 Code(s): R09.89 - OTH SYMPTOMS AND SIGNS INVOLVING THE CIRC AND RESP SYSTEMS Priority: High Current Visit: Yes (13) Hyponatremia SNOMED Code(s): 05464296 Code(s): E87.1 - HYPO-OSMOLALITY AND HYPONATREMIA Priority: High Current Visit: Yes Problem List Initiated/Reviewed/Updated: Yes My Orders Last 24 Hours: My Active Orders 03/28/19 07:38 Evaluate for Home Oxygen [RT Evaluate for Home Oxygen] [RC] Click to Edit Plan: I/P: Acute: S/P right total knee arthroplasty - post-operative day 3 -DVT prophylaxis and pain management per primary care team -PT/OT -IS/RT -Monitor oxygen saturation -Titrate oxygen as needed - 2L currently -Home medications reviewed -Vital signs stable -Monitor labs -Pre-operative Hgb was 14.3; Now 10.5-->10.2 -Pre-operative GFR was 77; now >60 -Pre-operative platelets were 439; Now 301-->273 -Pre-operative calcium was 10.4; Now 9.9 Osteoarthritis of right knee -Pain management per primary care team Post-operative hypoxia -Unable to wean of off oxygen -Reports dyspnea on exertion -2 view CXR shows bibasilar atelectasis, pulmonary vascular congestion -Continue to use IS -Lasix 20mg IVP one time on 03/27/18 -Easy-pap/RT -Home O2 - 2L at all times, 4L with activity -Follow-up with PCP after discharge. Hyponatremia -Sodium pre-operatively 137; Now 131-->127-->125-->134 -Urine sodium/creatinine -Home medications reviewed -IV fluid bolus as ordered -Follow-up with PCP after discharge Chronic: HTN Chronic SI joint pain Depression Insomnia Thrombocytosis Hypercalcemia Plan: Upgraded to observation status CM for discharge planning GI prophylaxis Home medications as indicated Other orders as listed above Routine AM labs She is a full code. Her PCP is Dr. Lewis From a hospitalist standpoint Mee is doing well. Her labs have remained stable and her sodium has improved after a few NS boluses. Her HCTZ was also stopped as it is felt this is likely contributing to her hyponatremia. Her vital signs have remained stable. She has been working with therapies and has been up ambulating. Unfortunately we were unable to wean her from oxygen. She is to wear 2L at all times and 4L with activity. Recommend pulmonology follow- up with a PFT after symptoms resolve. She was instructed to continue to utilizer her IS. Will put orders in for re-check BMP on 04/02/[address] Lewis. Home medications were otherwise continued. No nursing or patient concerns. Recommend follow-up with PCP next week regarding hyponatremia and new oxygen. Thank you for allowing us to participate in the care of this patient!!
[2019-03-29] MEDS: Losartan 25 MG Tab PO SCH (09:42)
[2019-03-29] MEDS: busPIRone 5 MG Tab PO SCH ×3 (09:43→21:08)
[2019-03-29] MEDS: Aspirin 325 MG Tab.EC PO SCH ×2 (09:44→21:08)
[2019-03-29] MEDS: Famotidine 20 MG Tab PO SCH ×2 (09:45→21:08)
[2019-03-29] MEDS: Docusate Sodium 100 MG Cap PO SCH ×2 (09:45→21:08)
--- NOTE | 2019-03-29 11:11 | PCM.OPNOTE ---
- General Post-Op/Procedure Note Date of Surgery/Procedure: 03/26/19 Operative Procedure(s): right total knee arthroplasty Pre Op Diagnosis: right knee osteoarthrosis Post-Op Diagnosis: Same Primary Surgeon: Himanshu Mcintyre Anesthesia Provider: Yee Ahumada Public Relations Player: Shandra Ramsay Public Relations Player: Shannan Conner EBL in mLs: 352 Complications: None Condition: Good Free Text/Narrative:: Intake & Output 03/28/19 03/29/19 03/29/19 22:59 06:59 14:59 Intake Total 2220 1950 180 Output Total 250 2600 Balance 1970 - 180 5/5 9mm 32x10
--- NOTE | 2019-03-29 12:23 | OR ---
DATE OF OPERATION: 03/26/2019 SURGEON: Himanshu Mcintyre MD OPERATION PERFORMED: Right total knee arthroplasty. PREOPERATIVE DIAGNOSIS: Right knee osteoarthrosis. POSTOPERATIVE DIAGNOSIS: Right knee osteoarthrosis. ANESTHESIA: Local MAC with spinal. ANESTHESIA PROVIDER: Yee Ahumada CRNA ASSISTANTS: 1. Shandra Ramsay PA-C. 2. Shannan Conner LPN. ESTIMATED BLOOD LOSS: 352 mL. COMPLICATIONS: None. CONDITION: Stable. IMPLANTS: 1. Serafina size 5 press-fit CR femur. 2. Russell size 5 press-fit tibial baseplate. 3. Serafina size 5, 9 mm CS polyethylene insert. 4. Serafina size 32 x 10 mm cement press-fit asymmetric patella. DESCRIPTION OF PROCEDURE: The patient was identified in the preop holding area. Proper site was marked and identified by the surgeon. The patient was taken back to the operating theater. After adequate anesthesia, the patient's right lower extremity had a nonsterile tourniquet applied and it was sterilely prepped and draped in the usual sterile fashion. OR time-out was performed. The patient received 2 g IV Ancef. At this time, the right lower extremity was exsanguinated. Tourniquet was insufflated to 300 mmHg. Standard medial parapatellar incision was made. Medial parapatellar arthrotomy was created. Deep fibers of the MCL were raised and anterior fat pad was resected. At this time, attention was turned to the patella. Patella measured a 24, it was resected to a 14 for a 32 x 10 mm patella. Drill holes were then drilled and found to be in adequate position. The drill was then drilled in the distal femur and the intramedullary distal femoral cutting guide was then placed. 8 mm was resected off the distal femur and was found to be an adequate resection. Sizing guide was placed. It was found to be a size 5 press-fit CR femur that was shown on the implant record at the beginning of this dictation. The drill holes were drilled for the epicondylar axis using Whitesides line and epicondyles as reference. At this time, the 4-in-1 cutting block was placed. An anterior posterior and anterior and posterior chamfer cuts were then completed. Attention was turned to the tibia. The posterior medial lateral retractors were placed. The extramedullary tibial guide was placed. It was placed in the old footprint of the ACL. It was aligned with the center of the ankle and 0 degrees of slope, 9 mm was then resected off the unaffected side. There was found to be an acceptable reduction. At this time, posterior osteophytes were removed along with medial and lateral meniscus. A trial implant was placed with a correct sized tibia that was mentioned at the beginning of the dictation. A Serafina size 5, 9 mm CS polyethylene insert was then placed. The patient's knee was brought through range of motion. The patella was tracking centrally and was stable to varus and valgus stress. Alignment was found to be roughly at 0 degrees. The tibia was stamped and drilled in proper rotation. The universal tibial base plate was impacted in place. Next, the Russell size 5 press-fit CR femur impacted into place and the Serafina size 5, 9 mm CS polyethylene insert was placed. The patient's knee was brought into full extension. The patella was then press-fit in place at this time. Tourniquet was deflated. One liter dilute Betadine solution was irrigated through the knee along with 3 L of pulse lavage irrigation with Ancef. Periarticular injection was then completed. The patient's knee was brought through a range of motion. Once the cement had time to set up and it was found to be stable to varus valgus stress, the patella was tracking centrally with full range of motion. At this time, a #2 barbed suture was used for closure of the medial parapatellar arthrotomy. Topical tranexamic acid was placed. 2-0 Vicryl was used subcutaneously, Prineo was used for the skin. The patient tolerated the procedure well and was sent to the PACU in stable condition. MMODAL /[id number]
--- NOTE | 2019-03-29 12:28 | PCM.SURGPN ---
- General Info Date of Service: 03/29/19 POD#: 3 Functional Status: Reports: Pain Controlled, Tolerating Diet, Ambulating, Urinating, Incentive Spirometry, Other (The pt states she is doing well and prepared for discharge.) - Patient Data Vitals - Most Recent: Last Vital Signs Temp 98.2 F 03/29/19 09:11 Pulse 92 03/29/19 09:11 Resp 16 03/29/19 09:11 BP 124/69 03/29/19 09:42 Pulse Ox 93 L 03/29/19 09:11 Weight - Most Recent: 205 lb 8 oz I&O - Last 24 Hours: Intake & Output 03/28/19 03/29/19 03/29/19 22:59 06:59 14:59 Intake Total 2220 1950 180 Output Total 250 2600 Balance 1970 -650 180 Lab Results Last 24 Hrs: Laboratory Results - last 24 hr 03/29/19 Range/Units 06:20 Sodium 134 L (136-145) mEq/L Potassium 4.6 (3.5-5.1) mEq/L Chloride 98 (98-107) mEq/L Carbon Dioxide 32 (21-32) mEq/L Anion Gap 8.6 (5-15) BUN 10 (7-18) mg/dL Creatinine 0.5 L (0.55-1.02) mg/dL Est Cr Clr Drug Dosing 102.60 mL/min Estimated GFR (MDRD) > 60 (>60) mL/min BUN/Creatinine Ratio 20.0 H (14-18) Glucose 96 (83-115) mg/dL Calcium 9.9 (8.5-10.1) mg/dL Magnesium 1.9 (1.8-2.4) mg/dl Med Orders - Current: Current Medications Aspirin (Ecotrin) 325 mg PO BID [facility] Last Admin: 03/29/19 09:44 Dose: 325 mg Bisacodyl (Dulcolax) 5 mg PO DAILY PRN PRN Reason: Constipation Last Admin: 03/28/19 20:41 Dose: 5 mg Buspirone HCl (Buspar) 5 mg PO TID [facility] Last Admin: 03/29/19 09:43 Dose: 5 mg Calcium Carbonate (Calcium Carbonate/Vitamin D 600 Mg-200 Unit) 1 tab PO QPM [facility] Last Admin: 03/28/19 17:09 Dose: 1 tab Cholecalciferol (Vitamin D3) 5,000 unit PO QPM [facility] Last Admin: 03/28/19 17:09 Dose: 5,000 unit Citalopram Hydrobromide (Celexa) 20 mg PO QPM [facility] Last Admin: 03/28/19 17:09 Dose: 20 mg Docusate Sodium (Colace) 100 mg PO BID [facility] Last Admin: 03/29/19 09:45 Dose: 100 mg Famotidine (Pepcid) 20 mg PO Q12H [facility] Last Admin: 03/29/19 09:45 Dose: 20 mg Losartan Potassium (Cozaar) 50 mg PO DAILY [facility] Last Admin: 03/29/19 09:42 Dose: 50 mg Magnesium Hydroxide (Milk Of Magnesia) 30 ml PO BID PRN PRN Reason: Constipation Last Admin: 03/29/19 06:37 Dose: 30 ml Magnesium Oxide (Magnesium Oxide) 400 mg PO QPM [facility] Last Admin: 03/28/19 17:09 Dose: 400 mg Morphine Sulfate (Morphine) 2 mg IVPUSH Q2H PRN PRN Reason: Breakthrough Pain Multivitamins (Thera) 1 each PO QPM [facility] Last Admin: 03/28/19 17:09 Dose: 1 each Naloxone HCl (Narcan) 0.1 mg IVPUSH Q5M PRN PRN Reason: Oversedation Ondansetron HCl (Zofran) 4 mg IVPUSH Q6H PRN PRN Reason: Nausea/Vomiting Last Admin: 03/27/19 11:06 Dose: 4 mg Oxycodone/Acetaminophen (Percocet 325-5 Mg) 1 - 2 tab PO Q4H PRN PRN Reason: Pain Last Admin: 03/29/19 10:35 Dose: 2 tab Potassium Gluconate (99 Mg) 0 each PO DAILY [facility] Last Admin: 03/29/19 09:46 Dose: Not Given Senna (Senna) 8.6 mg PO BID PRN PRN Reason: Constipation Last Admin: 03/29/19 10:35 Dose: 8.6 mg Trazodone HCl (Trazodone) 50 mg PO BEDTIME [facility] Last Admin: 03/28/19 20:42 Dose: 50 mg Discontinued Medications Acetaminophen (Tylenol) 975 mg PO ONETIME ONE Stop: 03/26/19 08:01 Last Admin: 03/26/19 08:09 Dose: 975 mg Bupivacaine HCl (Sensorcaine-Mpf 0.25%) Confirm Administered Dose 10 ml .ROUTE .STK-MED ONE Stop: 03/26/19 08:10 Last Admin: 03/26/19 10:59 Dose: 25 ml Bupivacaine HCl (Sensorcaine-Mpf 0.25%) Confirm Administered Dose 20 ml .ROUTE .[facility] ONE Stop: 03/26/19 08:40 Cefazolin Sodium (Ancef) Confirm Administered Dose 2 gm .ROUTE .[facility] ONE Stop: 03/26/19 08:09 Last Admin: 03/26/19 10:51 Dose: 2 gm Morphine Sulfate 8 mg/Epinephrine HCl 0.3 mg/Cefuroxime Sodium 750 mg/Ketorolac Tromethamine 30 mg/Sodium Chloride 27.9 ml 0 mg .XX ONETIME ONE Stop: 03/26/19 08:01 Last Admin: 03/26/19 10:58 Dose: 788.3 mg Ephedrine Sulfate (Ephedrine In Ns) Confirm Administered Dose 25 mg .ROUTE .[facility] ONE Stop: 03/26/19 10:04 Ephedrine Sulfate (Ephedrine In Ns) Confirm Administered Dose 25 mg .ROUTE .[facility] ONE Stop: 03/26/19 10:27 Epinephrine HCl (Adrenalin) Confirm Administered Dose 1 mg .ROUTE .[facility] ONE Stop: 03/26/19 09:16 Fentanyl (Sublimaze) Confirm Administered Dose 100 mcg .ROUTE .[facility] ONE Stop: 03/26/19 07:45 Fentanyl (Sublimaze) 50 mcg IVPUSH Q5M PRN PRN Reason: Pain Stop: 03/26/19 18:00 Furosemide (Lasix) 20 mg IVPUSH NOW ONE Stop: 03/27/19 14:01 Last Admin: 03/27/19 14:40 Dose: 20 mg Hydrochlorothiazide (Hydrochlorothiazide) 12.5 mg PO DAILY [facility] Last Admin: 03/28/19 08:09 Dose: 12.5 mg Lactated Ringer's (Ringers, Lactated) 1,000 mls @ 125 mls/hr IV ASDIRECTED [facility] Stop: 03/26/19 23:00 Last Admin: 03/26/19 08:15 Dose: 125 mls/hr Cefazolin Sodium/Dextrose 2 gm (/ Premix) 50 mls @ 100 mls/hr IV Q8H [facility] Stop: 03/27/19 08:59 Lidocaine HCl (Xylocaine-Mpf 1%) Confirm Administered Dose 4 mls @ as directed .ROUTE .STK-MED ONE Stop: 03/26/19 07:43 Lactated Ringer's (Ringers, Lactated) Confirm Administered Dose 1,000 mls @ as directed .ROUTE .STK-MED ONE Stop: 03/26/19 09:57 Cefazolin Sodium/Dextrose 2 gm (/ Premix) 50 mls @ 100 mls/hr IV Q8H [facility] Stop: 03/27/19 11:59 Last Admin: 03/27/19 10:30 Dose: 100 mls/hr Sodium Chloride (Normal Saline) 500 mls @ 999 mls/hr IV .BOLUS ONE Stop: 03/28/19 11:34 Last Admin: 03/28/19 12:00 Dose: 999 mls/hr Sodium Chloride (Normal Saline) 500 mls @ 999 mls/min IV .BOLUS ONE Stop: 03/28/19 20:01 Last Admin: 03/28/19 20:37 Dose: 999 mls/min Iodine (Iodine 2% Mild Tincture) Confirm Administered Dose 30 ml .ROUTE .STK- MED ONE Stop: 03/26/19 08:10 Last Admin: 03/26/19 10:50 Dose: 18 ml Ketorolac Tromethamine (Toradol) 15 mg IVPUSH Q6H PRN PRN Reason: Pain Last Admin: 03/28/19 06:26 Dose: 15 mg Ketorolac Tromethamine (Toradol) Confirm Administered Dose 30 mg .ROUTE .STK- MED ONE Stop: 03/26/19 10:27 Lidocaine/Sodium Bicarbonate (Buffered Lidocaine 1% In Ns 8.4%) 0.25 ml IDERM ONETIME PRN PRN Reason: Prior to IV Start Stop: 03/26/19 18:00 Last Admin: 03/26/19 08:15 Dose: 0.25 ml Midazolam HCl (Versed 1 Mg/Ml) Confirm Administered Dose 2 mg .ROUTE .STK-MED ONE Stop: 03/26/19 07:44 Ondansetron HCl (Zofran) Confirm Administered Dose 4 mg .ROUTE .STK-MED ONE Stop: 03/26/19 10:28 Ondansetron HCl (Zofran) 4 mg IVPUSH ONETIME PRN PRN Reason: Nausea/Vomiting Stop: 03/26/19 18:00 Oxycodone HCl (Oxycontin) 10 mg PO ONETIME ONE Stop: 03/26/19 08:01 Last Admin: 03/26/19 08:09 Dose: 10 mg Pregabalin (Lyrica) 50 mg PO ONETIME ONE Stop: 03/26/19 08:01 Last Admin: 03/26/19 08:09 Dose: 50 mg Propofol (Diprivan 20 Ml) Confirm Administered Dose 200 mg .ROUTE .STK-MED ONE Stop: 03/26/19 07:43 Ropivacaine (Naropin 0.5%) Confirm Administered Dose 30 ml .ROUTE .STK-MED ONE Stop: 03/26/19 09:16 Sodium Chloride (Saline Flush) 10 ml FLUSH ASDIRECTED PRN PRN Reason: Keep Vein Open Stop: 03/26/19 18:00 Tranexamic Acid (Cyklokapron) Confirm Administered Dose 1,000 mg .ROUTE .STK- MED ONE Stop: 03/26/19 08:09 Last Admin: 03/26/19 11:04 Dose: 1,000 mg Vancomycin HCl (Vancomycin) Confirm Administered Dose 1 gm .ROUTE .STK-MED ONE Stop: 03/26/19 08:09 Last Admin: 03/26/19 11:00 Dose: 1 gm - Exam Wound/Incisions: Dressing Dry and Intact General: Alert, Cooperative, No Acute Distress Lungs: Normal Respiratory Effort Extremities: Other (NVS intact for BLE. Arlene's negative.) Sepsis Event Note - Evaluation Sepsis Screening Result: No Definite Risk - Focused Exam Vital Signs: Vital Signs Temp Pulse Resp BP Pulse Ox 03/29/19 09:42 124/69 03/29/19 09:11 98.2 F 92 16 124/69 93 L 03/29/19 06:06 78 94 L 03/29/19 04:00 97.9 F 77 16 119/81 91 L 03/29/19 00:46 129/72 Date Exam was Performed: 03/29/19 Time Exam was Performed: 13:06 - Problem List Review Problem List Initiated/Reviewed/Updated: Yes - My Orders Last 24 Hours: Active Orders 24 hr Category Date Time Status Ready for Discharge [RC] PER UNIT ROUTINE Care 03/29/19 11:13 Active Medication Orders Aspirin (Ecotrin) 325 mg PO BID [facility] Last Admin: 03/29/19 09:44 Dose: 325 mg Admin: 03/28/19 20:42 Dose: 325 mg Admin: 03/28/19 08:12 Dose: 325 mg Admin: 03/27/19 20:48 Dose: 325 mg Admin: 03/27/19 10:02 Dose: 325 mg Bisacodyl (Dulcolax) 5 mg PO DAILY PRN PRN Reason: Constipation Last Admin: 03/28/19 20:41 Dose: 5 mg Buspirone HCl (Buspar) 5 mg PO TID [facility] Last Admin: 03/29/19 09:43 Dose: 5 mg Admin: 03/28/19 20:41 Dose: 5 mg Admin: 03/28/19 15:40 Dose: 5 mg Admin: 03/28/19 08:11 Dose: 5 mg Admin: 03/27/19 20:48 Dose: 5 mg Admin: 03/27/19 14:40 Dose: 5 mg Admin: 03/27/19 10:06 Dose: 5 mg Admin: 03/26/19 20:21 Dose: 5 mg Admin: 03/26/19 14:01 Dose: 5 mg Calcium Carbonate (Calcium Carbonate/Vitamin D 600 Mg-200 Unit) 1 tab PO QPM [facility] Last Admin: 03/28/19 17:09 Dose: 1 tab Admin: 03/27/19 17:38 Dose: 1 tab Admin: 03/26/19 17:47 Dose: 1 tab Cholecalciferol (Vitamin D3) 5,000 unit PO QPM [facility] Last Admin: 03/28/19 17:09 Dose: 5,000 unit Admin: 03/27/19 17:39 Dose: 5,000 unit Admin: 03/26/19 17:47 Dose: 5,000 unit Citalopram Hydrobromide (Celexa) 20 mg PO QPM [facility] Last Admin: 03/28/19 17:09 Dose: 20 mg Admin: 03/27/19 17:38 Dose: 20 mg Admin: 03/26/19 17:47 Dose: 20 mg Docusate Sodium (Colace) 100 mg PO BID [facility] Last Admin: 03/29/19 09:45 Dose: 100 mg Admin: 03/28/19 20:41 Dose: 100 mg Admin: 03/28/19 08:13 Dose: 100 mg Admin: 03/27/19 20:48 Dose: 100 mg Admin: 03/27/19 10:08 Dose: 100 mg Admin: 03/26/19 20:21 Dose: 100 mg Famotidine (Pepcid) 20 mg PO Q12H [facility] Last Admin: 03/29/19 09:45 Dose: 20 mg Admin: 03/28/19 20:41 Dose: 20 mg Admin: 03/28/19 08:10 Dose: 20 mg Admin: 03/27/19 20:48 Dose: 20 mg Admin: 03/27/19 10:04 Dose: 20 mg Admin: 03/26/19 20:21 Dose: 20 mg Losartan Potassium (Cozaar) 50 mg PO DAILY [facility] Last Admin: 03/29/19 09:42 Dose: 50 mg Admin: 03/28/19 08:12 Dose: 50 mg Admin: 03/27/19 10:08 Dose: 50 mg Magnesium Hydroxide (Milk Of Magnesia) 30 ml PO BID PRN PRN Reason: Constipation Last Admin: 03/29/19 06:37 Dose: 30 ml Magnesium Oxide (Magnesium Oxide) 400 mg PO QPM [facility] Last Admin: 03/28/19 17:09 Dose: 400 mg Admin: 03/27/19 17:37 Dose: 400 mg Admin: 03/26/19 17:47 Dose: 400 mg Morphine Sulfate (Morphine) 2 mg IVPUSH Q2H PRN PRN Reason: Breakthrough Pain Multivitamins (Thera) 1 each PO QPM [facility] Last Admin: 03/28/19 17:09 Dose: 1 each Admin: 03/27/19 17:39 Dose: 1 each Admin: 03/26/19 17:47 Dose: 1 each Naloxone HCl (Narcan) 0.1 mg IVPUSH Q5M PRN PRN Reason: Oversedation Ondansetron HCl (Zofran) 4 mg IVPUSH Q6H PRN PRN Reason: Nausea/Vomiting Last Admin: 03/27/19 11:06 Dose: 4 mg Oxycodone/Acetaminophen (Percocet 325-5 Mg) 1 - 2 tab PO Q4H PRN PRN Reason: Pain Last Admin: 03/29/19 10:35 Dose: 2 tab Admin: 03/29/19 06:35 Dose: 2 tab Admin: 03/28/19 21:34 Dose: 2 tab Admin: 03/28/19 15:39 Dose: 2 tab Admin: 03/28/19 12:05 Dose: 2 tab Admin: 03/28/19 06:26 Dose: 2 tab Admin: 03/27/19 20:48 Dose: 2 tab Admin: 03/27/19 16:44 Dose: 2 tab Admin: 03/27/19 10:00 Dose: 2 tab Admin: 03/27/19 03:34 Dose: 2 tab Admin: 03/26/19 20:20 Dose: 2 tab Admin: 03/26/19 14:01 Dose: 1 tab Potassium Gluconate (99 Mg) 0 each PO DAILY [facility] Last Admin: 03/29/19 09:46 Dose: Admin: 03/28/19 08:14 Dose: Admin: 03/27/19 10:11 Dose: Senna (Senna) 8.6 mg PO BID PRN PRN Reason: Constipation Last Admin: 03/29/19 10:35 Dose: 8.6 mg Trazodone HCl (Trazodone) 50 mg PO BEDTIME [facility] Last Admin: 03/28/19 20:42 Dose: 50 mg Admin: 03/27/19 20:48 Dose: 50 mg Admin: 03/26/19 20:21 Dose: 50 mg - Assessment Assessment (Free Text/Narrative):: POD#3 - right TKA - Plan Plan (Free Text/Narrative):: 1. Discharge to home today if cleared by Hospitalist service. Sodium improved. Pt will be sent home with O2 per [place]. 2. 325mg ASA PO BID, frequent mobility, TEDs. 3. Outpatient therapy. The pt's case was discussed with Dr. Mcintyre.
--- NOTE | 2019-03-29 13:14 | PCM.DCSUM1 ---
Discharge Summary - Hospital Course Brief History: Mee is a 74 yo female who underwent right TKA with Dr. Mcintyre on 03-26-2019. The procedure was completed under spinal anesthesia with MAC. The pt tolerated the procedure well and was admitted to the Medical-Surgical unit. The pt received Ancef maria del carmen-operatively. She participated in P.T. and O.T. and progressed well. She was allowed to WBAT and used a FWW for mobility. The pt's surgical wound was dressed with a Mepilex dressing and remained clean and dry. On POD#1, the pt was started on 325mg ASA BID for VTE prophylaxis. The pt used TEDs and SCDs also. On POD#1, the pt's hemoglobin was 10.5. Medical management was provided by the Hospitalist service and the pt 's hospital course was remarkable for hyponatremia and inability to wean from use of O2 prior to discharge. On POD#3, the pt was deemed appropriate for discharge to home. She will follow-up with her primary care provider and was discharged to home on O2 per [place]. Diagnosis: Stroke: No - Discharge Data Discharge Date: 03/29/19 Discharge Disposition: Home, Self-Care 01 Condition: Good - Referral to Home Health Primary Care Physician: Guru Lewis MD - Patient Summary/Data Operative Procedure(s) Performed: right total knee arthroplasty Consults: Consultations 03/26/19 06:40 OT Evaluation and Treatment [CONS] Routine PT Evaluation and Treatment [CONS] Routine 03/27/19 12:45 Consult to Physician [CONS] Routine 03/27/19 13:54 Consult to Respiratory Therapy [Respiratory Care Assess and Treatment] [CONS] Routine - Patient Instructions Diet: Usual Diet as Tolerated Activity: Apply Ice, As Tolerated, Elevate Extremity, Full Weight Bearing Driving: Do Not Drive Showering/Bathing: May Shower Wound/Incision Care: Keep Operative Site/Wound Site Clean and Dry, Do NOT Change Dressing Notify Provider of: Fever, Increased Pain, Swelling and Redness, Drainage, Nausea and/or Vomiting Other/Special Instructions: Please get up and moving around EVERY HOUR while awake. This helps to prevent blood clots. Please use your walker and have help with mobility as needed. Take a short walk in your home every hour while awake. Please take 325mg Aspirin TWICE daily. The aspirin is being used for blood clot prevention and not for pain management so please do not miss a dose of the medication. You could use a medication like Pepcid or Tagamet and a medication like Prilosec or Nexium to protect your stomach while you are using the aspirin. At home, please complete the exercises that you learned during the Hospital stay. Schedule for physical therapy. Use the pain medication as needed. The medication may cause drowsiness and constipation. Contact your primary care provider for instructions if you are constipated. You may use a stool softener like docusate sodium or Colace 100mg twice daily and/or a laxative like Miralax daily for constipation. Increase your water and fiber intake while you are using the pain medication. Discontinue use of the pain medication as soon as able. Please do not use other medications that may cause drowsiness (other pain medications, anxiety pills, cold medications, sleeping pills, etc) while using the prescription pain medication. Do not use alcohol while using the pain medication. You may use acetaminophen or Tylenol for pain management, however, please ensure you are not using over 4000 mg or 4 grams of acetaminophen per day from all sources. Your pain medication has 325mg of acetaminophen per tablet. At this time, please do not use ibuprofen (Motrin, Advil) or naproxen (Aleve) for pain management as you are using the aspirin. When the aspirin course is completed in 4 to 6 weeks, you could use ibuprofen or naproxen for pain management (if this is allowed by your primary care provider). Wear the ZUNILDA hose during the day and you may remove these at night. Elevate the limb to decrease swelling. Place ice to the area often. Place a towel between your skin and the blue pad. Use the incentive spirometer often. Take deep breaths throughout the day. Please keep the dressing in place until follow-up. Notify the Clinic if the dressing becomes saturated. Increase your protein intake while you are healing. If you have diabetes, please closely monitor your blood sugars and notify your primary care provider with abnormal values. Elevated blood sugars increases the risk of infection. You may resume use of herbal medications in 2 weeks. Your SODIUM level was a bit low after surgery. This is sometimes seen due to the surgery. We have scheduled a follow -up appointment with your primary care provider to have this re-checked following surgery. You will have a lab draw on 04/02/19 at the clinic in [place]. Call the Clinic with questions or concerns - [phone]. Follow-up with pulmonology as directed. Recommend you recieve a pulmonary function test at that appointment. Continue to wear your oxygen. 2L at all times and 4L with activity. Stop taking your Hydrochlorothiazide (HCTZ), as this likely contributed to your low sodium. Continue Cozaar (losartan) as directed. A prescription for this was sent to your pharmacy. Do not take the combination HCTZ/Losartan anymore. - Discharge Plan *PRESCRIPTION DRUG MONITORING PROGRAM REVIEWED*: No *COPY OF PRESCRIPTION DRUG MONITORING REPORT IN PATIENT INGRID: No Prescriptions/Med Rec: Acetaminophen/oxyCODONE [Percocet 325-5 MG] 1 - 2 tab PO Q4H PRN #60 tablet PRN Reason: Pain Aspirin [Ecotrin EC] 325 mg PO BID #84 tab.ec Losartan [Cozaar] 50 mg PO DAILY #20 tablet Home Medications: Home Meds Calcium Carbonate/Vitamin D3 [Calcium 600 + Vit D 200] 1 tab PO DAILY 03/23/19 [ History] Cholecalciferol (Vitamin D3) [Vitamin D3] 1 tab PO DAILY 03/23/19 [History] Escitalopram Oxalate [Lexapro] 10 mg PO DAILY 03/23/19 [History] Magnesium 400 mg PO DAILY 03/23/19 [History] Multivitamin [One-Daily Multi-Vitamin] 1 tab PO DAILY 03/23/19 [History] Potassium Gluconate [Potassium] 99 mg PO DAILY 03/23/19 [History] busPIRone [Buspar] 5 mg PO TID 03/23/19 [History] traZODone HCl [Trazodone HCl] 50 mg PO BEDTIME 03/23/19 [History] Acetaminophen/oxyCODONE [Percocet 325-5 MG] 1 - 2 tab PO Q4H PRN #60 tablet [Rx] Aspirin [Ecotrin EC] 325 mg PO BID #84 tab.ec 03/27/19 [Rx] Docusate Sodium [Colace] 100 mg PO BID cap 03/27/19 [Rx] Famotidine [Pepcid] 20 mg PO Q12H tablet 03/27/19 [Rx] Magnesium Hydroxide [Milk of Magnesia] 30 ml PO BID PRN cup 03/27/19 [Rx] Sennosides [Senna] 8.6 mg PO BID PRN tablet 03/27/19 [Rx] bisacodyL [Dulcolax] 5 mg PO DAILY PRN tablet 03/27/19 [Rx] Losartan [Cozaar] 50 mg PO DAILY #20 tablet 03/29/19 [Rx] Oxygen Therapy Mode: Nasal Cannula Oxygen Flow Rate (L/min): 2 (2L at all times, 4L with activity) Patient Handouts: Hyponatremia, [id number], Home Oxygen Use, Adult, Total Knee Replacement, [id number] Referrals: Hernán Gamez [Other] - 05/03/19 12:00 pm (Insemination Worker appointment is at 1:00 p.m. Central Standard Time. You will have pulmonary function tests prior to your appointment at 12:00 noon. Please arrive at 11:30 am [employer]. There will not be a visiting prison classification counselor (Dr Lora) in [place] until June. You would need to call in May at [phone] to schedule with him.) Guru Lewis MD [Primary Care Provider] - 04/06/19 10:30 am (Please follow up with Dr. Lewis in [place] on TuesdayApril 06 at 10:30 am. *Please go to [place] clinic on TuesdayApril 02 between 8:30-10:30 am to get bloodwork done. Results to Dr. Lewis.*) Shandra Ramsay PA-C [Physician Muffler Hand] - (Please follow up with CALLY Lockett on the following dates- April 04 at 10:30, April 10 at 1pm, May 07 at 1pm.) - Discharge Summary/Plan Comment DC Time >30 min.: No - Patient Data Vitals - Most Recent: Last Vital Signs Temp 98.2 F 03/29/19 09:11 Pulse 92 03/29/19 09:11 Resp 16 03/29/19 09:11 BP 124/69 03/29/19 09:42 Pulse Ox 93 L 03/29/19 09:11 Weight - Most Recent: 205 lb 8 oz I&O - Last 24 hours: Intake & Output 03/28/19 03/29/19 03/29/19 22:59 06:59 14:59 Intake Total 2220 1950 180 Output Total 250 2600 Balance 1970 -650 180 Lab Results - Last 24 hrs: Laboratory Results - last 24 hr 03/29/19 Range/Units 06:20 Sodium 134 L (136-145) mEq/L Potassium 4.6 (3.5-5.1) mEq/L Chloride 98 (98-107) mEq/L Carbon Dioxide 32 (21-32) mEq/L Anion Gap 8.6 (5-15) BUN 10 (7-18) mg/dL Creatinine 0.5 L (0.55-1.02) mg/dL Est Cr Clr Drug Dosing 102.60 mL/min Estimated GFR (MDRD) > 60 (>60) mL/min BUN/Creatinine Ratio 20.0 H (14-18) Glucose 96 (83-115) mg/dL Calcium 9.9 (8.5-10.1) mg/dL Magnesium 1.9 (1.8-2.4) mg/dl Med Orders - Current: Current Medications Aspirin (Ecotrin) 325 mg PO BID [facility] Last Admin: 03/29/19 09:44 Dose: 325 mg Bisacodyl (Dulcolax) 5 mg PO DAILY PRN PRN Reason: Constipation Last Admin: 03/28/19 20:41 Dose: 5 mg Buspirone HCl (Buspar) 5 mg PO TID [facility] Last Admin: 03/29/19 09:43 Dose: 5 mg Calcium Carbonate (Calcium Carbonate/Vitamin D 600 Mg-200 Unit) 1 tab PO QPM [facility] Last Admin: 03/28/19 17:09 Dose: 1 tab Cholecalciferol (Vitamin D3) 5,000 unit PO QPM [facility] Last Admin: 03/28/19 17:09 Dose: 5,000 unit Citalopram Hydrobromide (Celexa) 20 mg PO QPM [facility] Last Admin: 03/28/19 17:09 Dose: 20 mg Docusate Sodium (Colace) 100 mg PO BID [facility] Last Admin: 03/29/19 09:45 Dose: 100 mg Famotidine (Pepcid) 20 mg PO Q12H [facility] Last Admin: 03/29/19 09:45 Dose: 20 mg Losartan Potassium (Cozaar) 50 mg PO DAILY [facility] Last Admin: 03/29/19 09:42 Dose: 50 mg Magnesium Hydroxide (Milk Of Magnesia) 30 ml PO BID PRN PRN Reason: Constipation Last Admin: 03/29/19 06:37 Dose: 30 ml Magnesium Oxide (Magnesium Oxide) 400 mg PO QPM [facility] Last Admin: 03/28/19 17:09 Dose: 400 mg Morphine Sulfate (Morphine) 2 mg IVPUSH Q2H PRN PRN Reason: Breakthrough Pain Multivitamins (Thera) 1 each PO QPM [facility] Last Admin: 03/28/19 17:09 Dose: 1 each Naloxone HCl (Narcan) 0.1 mg IVPUSH Q5M PRN PRN Reason: Oversedation Ondansetron HCl (Zofran) 4 mg IVPUSH Q6H PRN PRN Reason: Nausea/Vomiting Last Admin: 03/27/19 11:06 Dose: 4 mg Oxycodone/Acetaminophen (Percocet 325-5 Mg) 1 - 2 tab PO Q4H PRN PRN Reason: Pain Last Admin: 03/29/19 10:35 Dose: 2 tab Potassium Gluconate (99 Mg) 0 each PO DAILY [facility] Last Admin: 03/29/19 09:46 Dose: Not Given Senna (Senna) 8.6 mg PO BID PRN PRN Reason: Constipation Last Admin: 03/29/19 10:35 Dose: 8.6 mg Trazodone HCl (Trazodone) 50 mg PO BEDTIME [facility] Last Admin: 03/28/19 20:42 Dose: 50 mg Discontinued Medications Acetaminophen (Tylenol) 975 mg PO ONETIME ONE Stop: 03/26/19 08:01 Last Admin: 03/26/19 08:09 Dose: 975 mg Bupivacaine HCl (Sensorcaine-Mpf 0.25%) Confirm Administered Dose 10 ml .ROUTE .STK-MED ONE Stop: 03/26/19 08:10 Last Admin: 03/26/19 10:59 Dose: 25 ml Bupivacaine HCl (Sensorcaine-Mpf 0.25%) Confirm Administered Dose 20 ml .ROUTE .STK-MED ONE Stop: 03/26/19 08:40 Cefazolin Sodium (Ancef) Confirm Administered Dose 2 gm .ROUTE .STK-MED ONE Stop: 03/26/19 08:09 Last Admin: 03/26/19 10:51 Dose: 2 gm Morphine Sulfate 8 mg/Epinephrine HCl 0.3 mg/Cefuroxime Sodium 750 mg/Ketorolac Tromethamine 30 mg/Sodium Chloride 27.9 ml 0 mg .XX ONETIME ONE Stop: 03/26/19 08:01 Last Admin: 03/26/19 10:58 Dose: 788.3 mg Ephedrine Sulfate (Ephedrine In Ns) Confirm Administered Dose 25 mg .ROUTE .STK- MED ONE Stop: 03/26/19 10:04 Ephedrine Sulfate (Ephedrine In Ns) Confirm Administered Dose 25 mg .ROUTE .STK- [facility] ONE Stop: 03/26/19 10:27 Epinephrine HCl (Adrenalin) Confirm Administered Dose 1 mg .ROUTE .STK-MED ONE Stop: 03/26/19 09:16 Fentanyl (Sublimaze) Confirm Administered Dose 100 mcg .ROUTE .[facility] ONE Stop: 03/26/19 07:45 Fentanyl (Sublimaze) 50 mcg IVPUSH Q5M PRN PRN Reason: Pain Stop: 03/26/19 18:00 Furosemide (Lasix) 20 mg IVPUSH NOW ONE Stop: 03/27/19 14:01 Last Admin: 03/27/19 14:40 Dose: 20 mg Hydrochlorothiazide (Hydrochlorothiazide) 12.5 mg PO DAILY [facility] Last Admin: 03/28/19 08:09 Dose: 12.5 mg Lactated Ringer's (Ringers, Lactated) 1,000 mls @ 125 mls/hr IV ASDIRECTED [facility] Stop: 03/26/19 23:00 Last Admin: 03/26/19 08:15 Dose: 125 mls/hr Cefazolin Sodium/Dextrose 2 gm (/ Premix) 50 mls @ 100 mls/hr IV Q8H [facility] Stop: 03/27/19 08:59 Lidocaine HCl (Xylocaine-Mpf 1%) Confirm Administered Dose 4 mls @ as directed .ROUTE .[facility] ONE Stop: 03/26/19 07:43 Lactated Ringer's (Ringers, Lactated) Confirm Administered Dose 1,000 mls @ as directed .ROUTE .[facility] ONE Stop: 03/26/19 09:57 Cefazolin Sodium/Dextrose 2 gm (/ Premix) 50 mls @ 100 mls/hr IV Q8H [facility] Stop: 03/27/19 11:59 Last Admin: 03/27/19 10:30 Dose: 100 mls/hr Sodium Chloride (Normal Saline) 500 mls @ 999 mls/hr IV .BOLUS ONE Stop: 03/28/19 11:34 Last Admin: 03/28/19 12:00 Dose: 999 mls/hr Sodium Chloride (Normal Saline) 500 mls @ 999 mls/min IV .BOLUS ONE Stop: 03/28/19 20:01 Last Admin: 03/28/19 20:37 Dose: 999 mls/min Iodine (Iodine 2% Mild Tincture) Confirm Administered Dose 30 ml .ROUTE .STK- MED ONE Stop: 03/26/19 08:10 Last Admin: 03/26/19 10:50 Dose: 18 ml Ketorolac Tromethamine (Toradol) 15 mg IVPUSH Q6H PRN PRN Reason: Pain Last Admin: 03/28/19 06:26 Dose: 15 mg Ketorolac Tromethamine (Toradol) Confirm Administered Dose 30 mg .ROUTE .STK- MED ONE Stop: 03/26/19 10:27 Lidocaine/Sodium Bicarbonate (Buffered Lidocaine 1% In Ns 8.4%) 0.25 ml IDERM ONETIME PRN PRN Reason: Prior to IV Start Stop: 03/26/19 18:00 Last Admin: 03/26/19 08:15 Dose: 0.25 ml Midazolam HCl (Versed 1 Mg/Ml) Confirm Administered Dose 2 mg .ROUTE .STK-MED ONE Stop: 03/26/19 07:44 Ondansetron HCl (Zofran) Confirm Administered Dose 4 mg .ROUTE .STK-MED ONE Stop: 03/26/19 10:28 Ondansetron HCl (Zofran) 4 mg IVPUSH ONETIME PRN PRN Reason: Nausea/Vomiting Stop: 03/26/19 18:00 Oxycodone HCl (Oxycontin) 10 mg PO ONETIME ONE Stop: 03/26/19 08:01 Last Admin: 03/26/19 08:09 Dose: 10 mg Pregabalin (Lyrica) 50 mg PO ONETIME ONE Stop: 03/26/19 08:01 Last Admin: 03/26/19 08:09 Dose: 50 mg Propofol (Diprivan 20 Ml) Confirm Administered Dose 200 mg .ROUTE .STK-MED ONE Stop: 03/26/19 07:43 Ropivacaine (Naropin 0.5%) Confirm Administered Dose 30 ml .ROUTE .STK-MED ONE Stop: 03/26/19 09:16 Sodium Chloride (Saline Flush) 10 ml FLUSH ASDIRECTED PRN PRN Reason: Keep Vein Open Stop: 03/26/19 18:00 Tranexamic Acid (Cyklokapron) Confirm Administered Dose 1,000 mg .ROUTE .STK- MED ONE Stop: 03/26/19 08:09 Last Admin: 03/26/19 11:04 Dose: 1,000 mg Vancomycin HCl (Vancomycin) Confirm Administered Dose 1 gm .ROUTE .STK-MED ONE Stop: 03/26/19 08:09 Last Admin: 03/26/19 11:00 Dose: 1 gm
[2019-03-29] MEDS: Multivitamins,Therapeutic Tab PO SCH (17:14)
[2019-03-29] MEDS: Cholecalciferol (Vitamin D3) 5,000 UNIT Tab PO SCH (17:15)
[2019-03-29] MEDS: Citalopram 20 MG Tab PO SCH (17:15)
[2019-03-29] MEDS: Calcium Carbonate/Vitamin D3 600 MG-200 Units Tab PO SCH (17:16)
[2019-03-29] MEDS: Magnesium Oxide 400 MG Tab PO SCH (17:16)
[2019-03-29] MEDS: traZODone 50 MG Tab PO SCH (21:08)
--- NOTE | 2019-03-30 06:39 | PCM.CONSN ---
- General Info Date of Service: 03/30/19 Admission Dx/Problem (Free Text): Admission Diagnosis/Problem Admission Diagnosis/Problem Osteoarthritis of knee Functional Status: Reports: Pain Controlled, Tolerating Diet, Ambulating, Urinating, Incentive Spirometry. Denies: New Symptoms - Review of Systems General: Reports: No Symptoms. Denies: Fever, Weakness, Fatigue, Malaise, Chills HEENT: Reports: No Symptoms. Denies: Headaches, Sore Throat Pulmonary: Reports: No Symptoms. Denies: Shortness of Breath (none on oxygen ) , Cough, Sputum, Wheezing Cardiovascular: Reports: No Symptoms. Denies: Chest Pain, Palpitations, Dyspnea on Exertion, Edema Gastrointestinal: Reports: No Symptoms. Denies: Abdominal Pain, Constipation, Diarrhea, Nausea, Vomiting Genitourinary: Reports: No Symptoms. Denies: Pain Musculoskeletal: Reports: Leg Pain Skin: Reports: No Symptoms Neurological: Reports: Difficulty Walking, Gait Disturbance. Denies: Confusion , Pre-Existing Deficit, Trouble Speaking Psychiatric: Reports: No Symptoms - Patient Data Vitals - Most Recent: Last Vital Signs Temp 97.7 F 03/30/19 01:15 Pulse 89 03/30/19 01:15 Resp 18 03/30/19 01:15 BP 129/81 03/30/19 01:15 Pulse Ox 94 L 03/30/19 01:15 Weight - Most Recent: 205 lb 8 oz I&O - Last 24 Hours: Intake & Output 03/29/19 03/29/19 03/30/19 14:59 22:59 06:59 Intake Total 180 1800 1000 Output Total 500 900 Balance 180 1300 100 Lab Results Last 24 Hours: Laboratory Results - last 24 hr 03/29/19 Range/Units 06:20 Sodium 134 L (136-145) mEq/L Potassium 4.6 (3.5-5.1) mEq/L Chloride 98 (98-107) mEq/L Carbon Dioxide 32 (21-32) mEq/L Anion Gap 8.6 (5-15) BUN 10 (7-18) mg/dL Creatinine 0.5 L (0.55-1.02) mg/dL Est Cr Clr Drug Dosing 102.60 mL/min Estimated GFR (MDRD) > 60 (>60) mL/min BUN/Creatinine Ratio 20.0 H (14-18) Glucose 96 (83-115) mg/dL Calcium 9.9 (8.5-10.1) mg/dL Magnesium 1.9 (1.8-2.4) mg/dl Med Orders - Current: Current Medications Aspirin (Ecotrin) 325 mg PO BID [facility] Last Admin: 03/29/19 21:08 Dose: 325 mg Bisacodyl (Dulcolax) 5 mg PO DAILY PRN PRN Reason: Constipation Last Admin: 03/28/19 20:41 Dose: 5 mg Buspirone HCl (Buspar) 5 mg PO TID [facility] Last Admin: 03/29/19 21:08 Dose: 5 mg Calcium Carbonate (Calcium Carbonate/Vitamin D 600 Mg-200 Unit) 1 tab PO QPM [facility] Last Admin: 03/29/19 17:16 Dose: 1 tab Cholecalciferol (Vitamin D3) 5,000 unit PO QPM [facility] Last Admin: 03/29/19 17:15 Dose: 5,000 unit Citalopram Hydrobromide (Celexa) 20 mg PO QPM [facility] Last Admin: 03/29/19 17:15 Dose: 20 mg Docusate Sodium (Colace) 100 mg PO BID [facility] Last Admin: 03/29/19 21:08 Dose: 100 mg Famotidine (Pepcid) 20 mg PO Q12H [facility] Last Admin: 03/29/19 21:08 Dose: 20 mg Losartan Potassium (Cozaar) 50 mg PO DAILY [facility] Last Admin: 03/29/19 09:42 Dose: 50 mg Magnesium Hydroxide (Milk Of Magnesia) 30 ml PO BID PRN PRN Reason: Constipation Last Admin: 03/29/19 06:37 Dose: 30 ml Magnesium Oxide (Magnesium Oxide) 400 mg PO QPM [facility] Last Admin: 03/29/19 17:16 Dose: 400 mg Morphine Sulfate (Morphine) 2 mg IVPUSH Q2H PRN PRN Reason: Breakthrough Pain Multivitamins (Thera) 1 each PO QPM [facility] Last Admin: 03/29/19 17:14 Dose: 1 each Naloxone HCl (Narcan) 0.1 mg IVPUSH Q5M PRN PRN Reason: Oversedation Ondansetron HCl (Zofran) 4 mg IVPUSH Q6H PRN PRN Reason: Nausea/Vomiting Last Admin: 03/27/19 11:06 Dose: 4 mg Oxycodone/Acetaminophen (Percocet 325-5 Mg) 1 - 2 tab PO Q4H PRN PRN Reason: Pain Last Admin: 03/29/19 21:53 Dose: 2 tab Potassium Gluconate (99 Mg) 0 each PO DAILY [facility] Last Admin: 03/29/19 09:46 Dose: Not Given Senna (Senna) 8.6 mg PO BID PRN PRN Reason: Constipation Last Admin: 03/29/19 10:35 Dose: 8.6 mg Trazodone HCl (Trazodone) 50 mg PO BEDTIME [facility] Last Admin: 03/29/19 21:08 Dose: 50 mg Discontinued Medications Acetaminophen (Tylenol) 975 mg PO ONETIME ONE Stop: 03/26/19 08:01 Last Admin: 03/26/19 08:09 Dose: 975 mg Bupivacaine HCl (Sensorcaine-Mpf 0.25%) Confirm Administered Dose 10 ml .ROUTE .STK-MED ONE Stop: 03/26/19 08:10 Last Admin: 03/26/19 10:59 Dose: 25 ml Bupivacaine HCl (Sensorcaine-Mpf 0.25%) Confirm Administered Dose 20 ml .ROUTE .STK-MED ONE Stop: 03/26/19 08:40 Cefazolin Sodium (Ancef) Confirm Administered Dose 2 gm .ROUTE .STK-MED ONE Stop: 03/26/19 08:09 Last Admin: 03/26/19 10:51 Dose: 2 gm Morphine Sulfate 8 mg/Epinephrine HCl 0.3 mg/Cefuroxime Sodium 750 mg/Ketorolac Tromethamine 30 mg/Sodium Chloride 27.9 ml 0 mg .XX ONETIME ONE Stop: 03/26/19 08:01 Last Admin: 03/26/19 10:58 Dose: 788.3 mg Ephedrine Sulfate (Ephedrine In Ns) Confirm Administered Dose 25 mg .ROUTE .STK- MED ONE Stop: 03/26/19 10:04 Ephedrine Sulfate (Ephedrine In Ns) Confirm Administered Dose 25 mg .ROUTE .STK- MED ONE Stop: 03/26/19 10:27 Epinephrine HCl (Adrenalin) Confirm Administered Dose 1 mg .ROUTE .STK-MED ONE Stop: 03/26/19 09:16 Fentanyl (Sublimaze) Confirm Administered Dose 100 mcg .ROUTE .STK-MED ONE Stop: 03/26/19 07:45 Fentanyl (Sublimaze) 50 mcg IVPUSH Q5M PRN PRN Reason: Pain Stop: 03/26/19 18:00 Furosemide (Lasix) 20 mg IVPUSH NOW ONE Stop: 03/27/19 14:01 Last Admin: 03/27/19 14:40 Dose: 20 mg Hydrochlorothiazide (Hydrochlorothiazide) 12.5 mg PO DAILY [facility] Last Admin: 03/28/19 08:09 Dose: 12.5 mg Lactated Ringer's (Ringers, Lactated) 1,000 mls @ 125 mls/hr IV ASDIRECTED [facility] Stop: 03/26/19 23:00 Last Admin: 03/26/19 08:15 Dose: 125 mls/hr Cefazolin Sodium/Dextrose 2 gm (/ Premix) 50 mls @ 100 mls/hr IV Q8H [facility] Stop: 03/27/19 08:59 Lidocaine HCl (Xylocaine-Mpf 1%) Confirm Administered Dose 4 mls @ as directed .ROUTE .STK-MED ONE Stop: 03/26/19 07:43 Lactated Ringer's (Ringers, Lactated) Confirm Administered Dose 1,000 mls @ as directed .ROUTE .STK-MED ONE Stop: 03/26/19 09:57 Cefazolin Sodium/Dextrose 2 gm (/ Premix) 50 mls @ 100 mls/hr IV Q8H [facility] Stop: 03/27/19 11:59 Last Admin: 03/27/19 10:30 Dose: 100 mls/hr Sodium Chloride (Normal Saline) 500 mls @ 999 mls/hr IV .BOLUS ONE Stop: 03/28/19 11:34 Last Admin: 03/28/19 12:00 Dose: 999 mls/hr Sodium Chloride (Normal Saline) 500 mls @ 999 mls/min IV .BOLUS ONE Stop: 03/28/19 20:01 Last Admin: 03/28/19 20:37 Dose: 999 mls/min Iodine (Iodine 2% Mild Tincture) Confirm Administered Dose 30 ml .ROUTE .STK- MED ONE Stop: 03/26/19 08:10 Last Admin: 03/26/19 10:50 Dose: 18 ml Ketorolac Tromethamine (Toradol) 15 mg IVPUSH Q6H PRN PRN Reason: Pain Last Admin: 03/28/19 06:26 Dose: 15 mg Ketorolac Tromethamine (Toradol) Confirm Administered Dose 30 mg .ROUTE .STK- MED ONE Stop: 03/26/19 10:27 Lidocaine/Sodium Bicarbonate (Buffered Lidocaine 1% In Ns 8.4%) 0.25 ml IDERM ONETIME PRN PRN Reason: Prior to IV Start Stop: 03/26/19 18:00 Last Admin: 03/26/19 08:15 Dose: 0.25 ml Midazolam HCl (Versed 1 Mg/Ml) Confirm Administered Dose 2 mg .ROUTE .STK-MED ONE Stop: 03/26/19 07:44 Ondansetron HCl (Zofran) Confirm Administered Dose 4 mg .ROUTE .ST-MED ONE Stop: 03/26/19 10:28 Ondansetron HCl (Zofran) 4 mg IVPUSH ONETIME PRN PRN Reason: Nausea/Vomiting Stop: 03/26/19 18:00 Oxycodone HCl (Oxycontin) 10 mg PO ONETIME ONE Stop: 03/26/19 08:01 Last Admin: 03/26/19 08:09 Dose: 10 mg Pregabalin (Lyrica) 50 mg PO ONETIME ONE Stop: 03/26/19 08:01 Last Admin: 03/26/19 08:09 Dose: 50 mg Propofol (Diprivan 20 Ml) Confirm Administered Dose 200 mg .ROUTE .STK-MED ONE Stop: 03/26/19 07:43 Ropivacaine (Naropin 0.5%) Confirm Administered Dose 30 ml .ROUTE .ST-MED ONE Stop: 03/26/19 09:16 Sodium Chloride (Saline Flush) 10 ml FLUSH ASDIRECTED PRN PRN Reason: Keep Vein Open Stop: 03/26/19 18:00 Tranexamic Acid (Cyklokapron) Confirm Administered Dose 1,000 mg .ROUTE [facility] ONE Stop: 03/26/19 08:09 Last Admin: 03/26/19 11:04 Dose: 1,000 mg Vancomycin HCl (Vancomycin) Confirm Administered Dose 1 gm .ROUTE .STK-MED ONE Stop: 03/26/19 08:09 Last Admin: 03/26/19 11:00 Dose: 1 gm - Exam Quality Assessment: Supplemental Oxygen (2L), DVT Prophylaxis General: Alert, Oriented, Cooperative, No Acute Distress HEENT: Pupils Equal, Pupils Reactive, Mucous Membr. Moist/[place] Neck: Supple, Trachea Midline Lungs: Clear to Auscultation, Normal Respiratory Effort Cardiovascular: Regular Rate, Regular Rhythm GI/Abdominal Exam: Normal Bowel Sounds, Soft, Non-Tender (Female) Exam: Deferred Back Exam: Normal Inspection, Full Range of Motion Extremities: Normal Capillary Refill, Leg Pain, Limited Range of Motion, Other ( Bandage in place on right leg. Cooing pack in place.) Peripheral Pulses: 2+: Radial (L), Radial (R), Dorsalis Pedis (L), Dorsalis Pedis (R) Skin: Warm, Dry, Intact Wound/Incisions: Dressing Dry and Intact Neurological: No New Focal Deficit Psy/Mental Status: Alert, Normal Affect, Normal Mood Sepsis Event Note - Evaluation Sepsis Screening Result: No Definite Risk - Focused Exam Vital Signs: Vital Signs Temp Pulse Resp BP Pulse Ox Pulse Ox 03/30/19 01:15 97.7 F 89 18 129/81 94 L 03/29/19 21:59 97.5 F 78 17 105/66 97 03/29/19 21:00 94 L 03/29/19 20:00 97 Date Exam was Performed: 03/30/19 Time Exam was Performed: 09:06 Consult PN Assessment/Plan POD#: 4 (1) S/P total knee arthroplasty SNOMED Code(s): 8367777491001, 477872841, 7968089954684 Code(s): Z96.659 - PRESENCE OF UNSPECIFIED ARTIFICIAL KNEE JOINT Priority: High Current Visit: Yes Qualifiers: Laterality: right Qualified Code(s): Z96.651 - Presence of right artificial knee joint (2) Osteoarthritis SNOMED Code(s): 428831028 Code(s): M19.90 - UNSPECIFIED OSTEOARTHRITIS, UNSPECIFIED SITE Priority: High Current Visit: Yes Qualifiers: Osteoarthritis location: knee Osteoarthritis type: primary Laterality: right Qualified Code(s): M17.11 - Unilateral primary osteoarthritis, right knee (3) Postoperative hypoxia SNOMED Code(s): 576991507 Code(s): R09.02 - HYPOXEMIA; Z98.890 - OTHER SPECIFIED POSTPROCEDURAL STATES Priority: High Current Visit: Yes (4) Shortness of breath SNOMED Code(s): 539806394 Code(s): R06.02 - SHORTNESS OF BREATH Priority: High Current Visit: Yes (5) HTN (hypertension) SNOMED Code(s): 75080879 Code(s): I10 - ESSENTIAL (PRIMARY) HYPERTENSION Priority: Low Current Visit: No Qualifiers: Hypertension type: unspecified Qualified Code(s): I10 - Essential (primary ) hypertension (6) Chronic SI joint pain SNOMED Code(s): 622939082 Code(s): M53.3 - SACROCOCCYGEAL DISORDERS, NOT ELSEWHERE CLASSIFIED; G89.29 - OTHER CHRONIC PAIN Priority: Low Current Visit: No (7) Depression SNOMED Code(s): 23709431 Code(s): F32.9 - MAJOR DEPRESSIVE DISORDER, SINGLE EPISODE, UNSPECIFIED Priority: Low Current Visit: No Qualifiers: Depression Type: other depression Qualified Code(s): F32.89 - Other specified depressive episodes (8) Insomnia SNOMED Code(s): 414519905 Code(s): G47.00 - INSOMNIA, UNSPECIFIED Priority: Low Current Visit: No Qualifiers: Insomnia type: unspecified Qualified Code(s): G47.00 - Insomnia, unspecified (9) Thrombocytosis SNOMED Code(s): 4755101 Code(s): D47.3 - ESSENTIAL (HEMORRHAGIC) THROMBOCYTHEMIA Priority: Low Current Visit: No (10) Hypercalcemia SNOMED Code(s): 24380342 Code(s): E83.52 - HYPERCALCEMIA Priority: Low Current Visit: No (11) Atelectasis of both lungs SNOMED Code(s): 51498618 Code(s): J98.11 - ATELECTASIS Priority: High Current Visit: Yes (12) Pulmonary vascular congestion SNOMED Code(s): 103367291 Code(s): R09.89 - OTH SYMPTOMS AND SIGNS INVOLVING THE CIRC AND RESP SYSTEMS Priority: High Current Visit: Yes (13) Hyponatremia SNOMED Code(s): 73053387 Code(s): E87.1 - HYPO-OSMOLALITY AND HYPONATREMIA Priority: High Current Visit: Yes Problem List Initiated/Reviewed/Updated: Yes My Orders Last 24 Hours: My Active Orders 03/29/19 11:13 Ready for Discharge [RC] PER UNIT ROUTINE Plan: I/P: Acute: S/P right total knee arthroplasty - post-operative day 4 -DVT prophylaxis and pain management per primary care team -PT/OT -IS/RT -Monitor oxygen saturation -Titrate oxygen as needed - 2L currently -Home medications reviewed -Vital signs stable -Monitor labs -Pre-operative Hgb was 14.3; Now 10.5-->10.2 -Pre-operative GFR was 77; now >60 -Pre-operative platelets were 439; Now 301-->273 -Pre-operative calcium was 10.4; Now 9.9 Osteoarthritis of right knee -Pain management per primary care team Post-operative hypoxia -Unable to wean of off oxygen -Reports dyspnea on exertion -2 view CXR shows bibasilar atelectasis, pulmonary vascular congestion -Continue to use IS -Lasix 20mg IVP one time on 03/27/18 -Easy-pap/RT -Home O2 - 2L at all times, 4L with activity -Follow-up with PCP after discharge. Hyponatremia -Sodium pre-operatively 137; Now 131-->127-->125-->134 -Urine sodium/creatinine -Home medications reviewed -IV fluid bolus as ordered -Follow-up with PCP after discharge Chronic: HTN Chronic SI joint pain Depression Insomnia Thrombocytosis Hypercalcemia Plan: Upgraded to observation status CM for discharge planning GI prophylaxis Home medications as indicated Other orders as listed above Routine AM labs She is a full code. Her PCP is Dr. Lewis From a hospitalist standpoint Mee is doing well. She was expected to discharge yesterday, 03/29/19 but unfortunately there was difficulty getting her oxygen here and concerns over the roads for her drive back to [place]. Because of this she was held overnight. Again her labs had remained stable and her sodium had improved after a few NS boluses. Her HCTZ was stopped as it is felt this is likely contributing to her hyponatremia. Her vital signs have remained stable. She has been working with therapies and has been up ambulating. Unfortunately, we were unable to wean her from oxygen. She is to wear 2L at all times and 4L with activity. Recommend pulmonology follow-up with a PFT after symptoms resolve. She was instructed to continue to utilizer her IS. Will put orders in for re-check BMP on 04/02/[address] Lewis. Home medications were otherwise continued. No nursing or patient concerns. Recommend follow-up with PCP next week regarding hyponatremia and new oxygen. Thank you for allowing us to participate in the care of this patient!!
[2019-03-30] MEDS: Aspirin 325 MG Tab.EC PO SCH (08:17)
[2019-03-30] MEDS: Losartan 25 MG Tab PO SCH (08:18)
[2019-03-30] MEDS: Docusate Sodium 100 MG Cap PO SCH (08:18)
[2019-03-30] MEDS: Famotidine 20 MG Tab PO SCH (08:18)
[2019-03-30] MEDS: busPIRone 5 MG Tab PO SCH (08:19)
[2019-03-30] MEDS: Acetaminophen/oxyCODONE 325-5 MG Tab PO PRN (09:38)
--- NOTE | 2019-03-30 09:58 | PCM.SURGPN ---
- General Info Date of Service: 03/30/19 POD#: 4 Functional Status: Reports: Pain Controlled, Tolerating Diet, Ambulating, Urinating, Incentive Spirometry, Other (The pt states she is prepared for discharge to home.) - Patient Data Vitals - Most Recent: Last Vital Signs Temp 98.6 F 03/30/19 07:52 Pulse 81 03/30/19 07:52 Resp 16 03/30/19 07:52 BP 158/94 H 03/30/19 08:18 Pulse Ox 96 03/30/19 07:52 Weight - Most Recent: 205 lb 8 oz I&O - Last 24 Hours: Intake & Output 03/29/19 03/30/19 03/30/19 22:59 06:59 14:59 Intake Total 1800 1000 Output Total 500 900 Balance 1300 100 Med Orders - Current: Current Medications Aspirin (Ecotrin) 325 mg PO BID [facility] Last Admin: 03/30/19 08:17 Dose: 325 mg Bisacodyl (Dulcolax) 5 mg PO DAILY PRN PRN Reason: Constipation Last Admin: 03/28/19 20:41 Dose: 5 mg Buspirone HCl (Buspar) 5 mg PO TID [facility] Last Admin: 03/30/19 08:19 Dose: 5 mg Calcium Carbonate (Calcium Carbonate/Vitamin D 600 Mg-200 Unit) 1 tab PO QPM [facility] Last Admin: 03/29/19 17:16 Dose: 1 tab Cholecalciferol (Vitamin D3) 5,000 unit PO QPM [facility] Last Admin: 03/29/19 17:15 Dose: 5,000 unit Citalopram Hydrobromide (Celexa) 20 mg PO QPM [facility] Last Admin: 03/29/19 17:15 Dose: 20 mg Docusate Sodium (Colace) 100 mg PO BID [facility] Last Admin: 03/30/19 08:18 Dose: 100 mg Famotidine (Pepcid) 20 mg PO Q12H [facility] Last Admin: 03/30/19 08:18 Dose: 20 mg Losartan Potassium (Cozaar) 50 mg PO DAILY [facility] Last Admin: 03/30/19 08:18 Dose: 50 mg Magnesium Hydroxide (Milk Of Magnesia) 30 ml PO BID PRN PRN Reason: Constipation Last Admin: 03/29/19 06:37 Dose: 30 ml Magnesium Oxide (Magnesium Oxide) 400 mg PO QPM [facility] Last Admin: 03/29/19 17:16 Dose: 400 mg Morphine Sulfate (Morphine) 2 mg IVPUSH Q2H PRN PRN Reason: Breakthrough Pain Multivitamins (Thera) 1 each PO QPM [facility] Last Admin: 03/29/19 17:14 Dose: 1 each Naloxone HCl (Narcan) 0.1 mg IVPUSH Q5M PRN PRN Reason: Oversedation Ondansetron HCl (Zofran) 4 mg IVPUSH Q6H PRN PRN Reason: Nausea/Vomiting Last Admin: 03/27/19 11:06 Dose: 4 mg Oxycodone/Acetaminophen (Percocet 325-5 Mg) 1 - 2 tab PO Q4H PRN PRN Reason: Pain Last Admin: 03/30/19 09:38 Dose: 2 tab Potassium Gluconate (99 Mg) 0 each PO DAILY [facility] Last Admin: 03/30/19 08:36 Dose: Not Given Senna (Senna) 8.6 mg PO BID PRN PRN Reason: Constipation Last Admin: 03/29/19 10:35 Dose: 8.6 mg Trazodone HCl (Trazodone) 50 mg PO BEDTIME [facility] Last Admin: 03/29/19 21:08 Dose: 50 mg Discontinued Medications Acetaminophen (Tylenol) 975 mg PO ONETIME ONE Stop: 03/26/19 08:01 Last Admin: 03/26/19 08:09 Dose: 975 mg Bupivacaine HCl (Sensorcaine-Mpf 0.25%) Confirm Administered Dose 10 ml .ROUTE .STK-MED ONE Stop: 03/26/19 08:10 Last Admin: 03/26/19 10:59 Dose: 25 ml Bupivacaine HCl (Sensorcaine-Mpf 0.25%) Confirm Administered Dose 20 ml .ROUTE .STK-MED ONE Stop: 03/26/19 08:40 Cefazolin Sodium (Ancef) Confirm Administered Dose 2 gm .ROUTE .STK-MED ONE Stop: 03/26/19 08:09 Last Admin: 03/26/19 10:51 Dose: 2 gm Morphine Sulfate 8 mg/Epinephrine HCl 0.3 mg/Cefuroxime Sodium 750 mg/Ketorolac Tromethamine 30 mg/Sodium Chloride 27.9 ml 0 mg .XX ONETIME ONE Stop: 03/26/19 08:01 Last Admin: 03/26/19 10:58 Dose: 788.3 mg Ephedrine Sulfate (Ephedrine In Ns) Confirm Administered Dose 25 mg .ROUTE .STK- MED ONE Stop: 03/26/19 10:04 Ephedrine Sulfate (Ephedrine In Ns) Confirm Administered Dose 25 mg .ROUTE .STK- MED ONE Stop: 03/26/19 10:27 Epinephrine HCl (Adrenalin) Confirm Administered Dose 1 mg .ROUTE .[facility] ONE Stop: 03/26/19 09:16 Fentanyl (Sublimaze) Confirm Administered Dose 100 mcg .ROUTE .STK-MED ONE Stop: 03/26/19 07:45 Fentanyl (Sublimaze) 50 mcg IVPUSH Q5M PRN PRN Reason: Pain Stop: 03/26/19 18:00 Furosemide (Lasix) 20 mg IVPUSH NOW ONE Stop: 03/27/19 14:01 Last Admin: 03/27/19 14:40 Dose: 20 mg Hydrochlorothiazide (Hydrochlorothiazide) 12.5 mg PO DAILY [facility] Last Admin: 03/28/19 08:09 Dose: 12.5 mg Lactated Ringer's (Ringers, Lactated) 1,000 mls @ 125 mls/hr IV ASDIRECTED [facility] Stop: 03/26/19 23:00 Last Admin: 03/26/19 08:15 Dose: 125 mls/hr Cefazolin Sodium/Dextrose 2 gm (/ Premix) 50 mls @ 100 mls/hr IV Q8H [facility] Stop: 03/27/19 08:59 Lidocaine HCl (Xylocaine-Mpf 1%) Confirm Administered Dose 4 mls @ as directed .ROUTE .[facility] ONE Stop: 03/26/19 07:43 Lactated Ringer's (Ringers, Lactated) Confirm Administered Dose 1,000 mls @ as directed .ROUTE .STK-MED ONE Stop: 03/26/19 09:57 Cefazolin Sodium/Dextrose 2 gm (/ Premix) 50 mls @ 100 mls/hr IV Q8H [facility] Stop: 03/27/19 11:59 Last Admin: 03/27/19 10:30 Dose: 100 mls/hr Sodium Chloride (Normal Saline) 500 mls @ 999 mls/hr IV .BOLUS ONE Stop: 03/28/19 11:34 Last Admin: 03/28/19 12:00 Dose: 999 mls/hr Sodium Chloride (Normal Saline) 500 mls @ 999 mls/min IV .BOLUS ONE Stop: 03/28/19 20:01 Last Admin: 03/28/19 20:37 Dose: 999 mls/min Iodine (Iodine 2% Mild Tincture) Confirm Administered Dose 30 ml .ROUTE .STK- MED ONE Stop: 03/26/19 08:10 Last Admin: 03/26/19 10:50 Dose: 18 ml Ketorolac Tromethamine (Toradol) 15 mg IVPUSH Q6H PRN PRN Reason: Pain Last Admin: 03/28/19 06:26 Dose: 15 mg Ketorolac Tromethamine (Toradol) Confirm Administered Dose 30 mg .ROUTE .STK- MED ONE Stop: 03/26/19 10:27 Lidocaine/Sodium Bicarbonate (Buffered Lidocaine 1% In Ns 8.4%) 0.25 ml IDERM ONETIME PRN PRN Reason: Prior to IV Start Stop: 03/26/19 18:00 Last Admin: 03/26/19 08:15 Dose: 0.25 ml Midazolam HCl (Versed 1 Mg/Ml) Confirm Administered Dose 2 mg .ROUTE .STK-MED ONE Stop: 03/26/19 07:44 Ondansetron HCl (Zofran) Confirm Administered Dose 4 mg .ROUTE .STK-MED ONE Stop: 03/26/19 10:28 Ondansetron HCl (Zofran) 4 mg IVPUSH ONETIME PRN PRN Reason: Nausea/Vomiting Stop: 03/26/19 18:00 Oxycodone HCl (Oxycontin) 10 mg PO ONETIME ONE Stop: 03/26/19 08:01 Last Admin: 03/26/19 08:09 Dose: 10 mg Pregabalin (Lyrica) 50 mg PO ONETIME ONE Stop: 03/26/19 08:01 Last Admin: 03/26/19 08:09 Dose: 50 mg Propofol (Diprivan 20 Ml) Confirm Administered Dose 200 mg .ROUTE .STK-MED ONE Stop: 03/26/19 07:43 Ropivacaine (Naropin 0.5%) Confirm Administered Dose 30 ml .ROUTE .STK-MED ONE Stop: 03/26/19 09:16 Sodium Chloride (Saline Flush) 10 ml FLUSH ASDIRECTED PRN PRN Reason: Keep Vein Open Stop: 03/26/19 18:00 Tranexamic Acid (Cyklokapron) Confirm Administered Dose 1,000 mg .ROUTE .STK- MED ONE Stop: 03/26/19 08:09 Last Admin: 03/26/19 11:04 Dose: 1,000 mg Vancomycin HCl (Vancomycin) Confirm Administered Dose 1 gm .ROUTE .STK-MED ONE Stop: 03/26/19 08:09 Last Admin: 03/26/19 11:00 Dose: 1 gm - Exam Wound/Incisions: Dressing Dry and Intact General: Alert, Cooperative, No Acute Distress Lungs: Normal Respiratory Effort Extremities: Other (NVS intact for BLE. Arlene's negative for BLE. Mod effusion right knee.) Sepsis Event Note - Evaluation Sepsis Screening Result: No Definite Risk - Focused Exam Vital Signs: Vital Signs Temp Pulse Resp BP Pulse Ox Pulse Ox 03/30/19 08:18 158/94 H 03/30/19 07:52 98.6 F 81 16 158/94 H 96 03/30/19 07:22 93 L 03/30/19 01:15 97.7 F 89 18 129/81 94 L 03/29/19 21:59 97.5 F 78 17 105/66 97 Date Exam was Performed: 03/30/19 Time Exam was Performed: 09:56 - Problem List Review Problem List Initiated/Reviewed/Updated: Yes - My Orders Last 24 Hours: Active Orders 24 hr Category Date Time Status Communication Order [RC] ASDIRECTED Care 03/30/19 08:32 Active Ready for Discharge [RC] PER UNIT ROUTINE Care 03/29/19 11:13 Inactive Ready for Discharge [RC] PER UNIT ROUTINE Care 03/30/19 07:14 Active Medication Orders Aspirin (Ecotrin) 325 mg PO BID [facility] Last Admin: 03/30/19 08:17 Dose: 325 mg Admin: 03/29/19 21:08 Dose: 325 mg Admin: 03/29/19 09:44 Dose: 325 mg Admin: 03/28/19 20:42 Dose: 325 mg Admin: 03/28/19 08:12 Dose: 325 mg Admin: 03/27/19 20:48 Dose: 325 mg Admin: 03/27/19 10:02 Dose: 325 mg Bisacodyl (Dulcolax) 5 mg PO DAILY PRN PRN Reason: Constipation Last Admin: 03/28/19 20:41 Dose: 5 mg Buspirone HCl (Buspar) 5 mg PO TID [facility] Last Admin: 03/30/19 08:19 Dose: 5 mg Admin: 03/29/19 21:08 Dose: 5 mg Admin: 03/29/19 15:16 Dose: 5 mg Admin: 03/29/19 09:43 Dose: 5 mg Admin: 03/28/19 20:41 Dose: 5 mg Admin: 03/28/19 15:40 Dose: 5 mg Admin: 03/28/19 08:11 Dose: 5 mg Admin: 03/27/19 20:48 Dose: 5 mg Admin: 03/27/19 14:40 Dose: 5 mg Admin: 03/27/19 10:06 Dose: 5 mg Admin: 03/26/19 20:21 Dose: 5 mg Admin: 03/26/19 14:01 Dose: 5 mg Calcium Carbonate (Calcium Carbonate/Vitamin D 600 Mg-200 Unit) 1 tab PO QPM [facility] Last Admin: 03/29/19 17:16 Dose: 1 tab Admin: 03/28/19 17:09 Dose: 1 tab Admin: 03/27/19 17:38 Dose: 1 tab Admin: 03/26/19 17:47 Dose: 1 tab Cholecalciferol (Vitamin D3) 5,000 unit PO QPM [facility] Last Admin: 03/29/19 17:15 Dose: 5,000 unit Admin: 03/28/19 17:09 Dose: 5,000 unit Admin: 03/27/19 17:39 Dose: 5,000 unit Admin: 03/26/19 17:47 Dose: 5,000 unit Citalopram Hydrobromide (Celexa) 20 mg PO QPM [facility] Last Admin: 03/29/19 17:15 Dose: 20 mg Admin: 03/28/19 17:09 Dose: 20 mg Admin: 03/27/19 17:38 Dose: 20 mg Admin: 03/26/19 17:47 Dose: 20 mg Docusate Sodium (Colace) 100 mg PO BID [facility] Last Admin: 03/30/19 08:18 Dose: 100 mg Admin: 03/29/19 21:08 Dose: 100 mg Admin: 03/29/19 09:45 Dose: 100 mg Admin: 03/28/19 20:41 Dose: 100 mg Admin: 03/28/19 08:13 Dose: 100 mg Admin: 03/27/19 20:48 Dose: 100 mg Admin: 03/27/19 10:08 Dose: 100 mg Admin: 03/26/19 20:21 Dose: 100 mg Famotidine (Pepcid) 20 mg PO Q12H [facility] Last Admin: 03/30/19 08:18 Dose: 20 mg Admin: 03/29/19 21:08 Dose: 20 mg Admin: 03/29/19 09:45 Dose: 20 mg Admin: 03/28/19 20:41 Dose: 20 mg Admin: 03/28/19 08:10 Dose: 20 mg Admin: 03/27/19 20:48 Dose: 20 mg Admin: 03/27/19 10:04 Dose: 20 mg Admin: 03/26/19 20:21 Dose: 20 mg Losartan Potassium (Cozaar) 50 mg PO DAILY [facility] Last Admin: 03/30/19 08:18 Dose: 50 mg Admin: 03/29/19 09:42 Dose: 50 mg Admin: 03/28/19 08:12 Dose: 50 mg Admin: 03/27/19 10:08 Dose: 50 mg Magnesium Hydroxide (Milk Of Magnesia) 30 ml PO BID PRN PRN Reason: Constipation Last Admin: 03/29/19 06:37 Dose: 30 ml Magnesium Oxide (Magnesium Oxide) 400 mg PO QPM [facility] Last Admin: 03/29/19 17:16 Dose: 400 mg Admin: 03/28/19 17:09 Dose: 400 mg Admin: 03/27/19 17:37 Dose: 400 mg Admin: 03/26/19 17:47 Dose: 400 mg Morphine Sulfate (Morphine) 2 mg IVPUSH Q2H PRN PRN Reason: Breakthrough Pain Multivitamins (Thera) 1 each PO QPM [facility] Last Admin: 03/29/19 17:14 Dose: 1 each Admin: 03/28/19 17:09 Dose: 1 each Admin: 03/27/19 17:39 Dose: 1 each Admin: 03/26/19 17:47 Dose: 1 each Naloxone HCl (Narcan) 0.1 mg IVPUSH Q5M PRN PRN Reason: Oversedation Ondansetron HCl (Zofran) 4 mg IVPUSH Q6H PRN PRN Reason: Nausea/Vomiting Last Admin: 03/27/19 11:06 Dose: 4 mg Oxycodone/Acetaminophen (Percocet 325-5 Mg) 1 - 2 tab PO Q4H PRN PRN Reason: Pain Last Admin: 03/30/19 09:38 Dose: 2 tab Admin: 03/29/19 21:53 Dose: 2 tab Admin: 03/29/19 17:53 Dose: 2 tab Admin: 03/29/19 10:35 Dose: 2 tab Admin: 03/29/19 06:35 Dose: 2 tab Admin: 03/28/19 21:34 Dose: 2 tab Admin: 03/28/19 15:39 Dose: 2 tab Admin: 03/28/19 12:05 Dose: 2 tab Admin: 03/28/19 06:26 Dose: 2 tab Admin: 03/27/19 20:48 Dose: 2 tab Admin: 03/27/19 16:44 Dose: 2 tab Admin: 03/27/19 10:00 Dose: 2 tab Admin: 03/27/19 03:34 Dose: 2 tab Admin: 03/26/19 20:20 Dose: 2 tab Admin: 03/26/19 14:01 Dose: 1 tab Potassium Gluconate (99 Mg) 0 each PO DAILY [facility] Last Admin: 03/30/19 08:36 Dose: Admin: 03/29/19 09:46 Dose: Admin: 03/28/19 08:14 Dose: Admin: 03/27/19 10:11 Dose: Senna (Senna) 8.6 mg PO BID PRN PRN Reason: Constipation Last Admin: 03/29/19 10:35 Dose: 8.6 mg Trazodone HCl (Trazodone) 50 mg PO BEDTIME [facility] Last Admin: 03/29/19 21:08 Dose: 50 mg Admin: 03/28/19 20:42 Dose: 50 mg Admin: 03/27/19 20:48 Dose: 50 mg Admin: 03/26/19 20:21 Dose: 50 mg - Assessment Assessment (Free Text/Narrative):: POD#4 -s/p right TKA - Plan Plan (Free Text/Narrative):: 1. The pt was unable to discharge to home yesterday as Home O2 supplies were not available. D/C to home today. The pt will f/u with PCP. 2. Outpatient therapy. 3. 325mg ASA PO BID, frequent mobility, TEDs. The pt's case was discussed with Dr. Mcintyre.
--- NOTE | 2019-03-30 09:59 | PCM.DCSUM1 ---
Discharge Summary - Hospital Course Brief History: Mee is a 74 yo female who underwent right TKA with Dr. Mcintyre on 03-26-2019. The procedure was completed under spinal anesthesia with MAC. The pt tolerated the procedure well and was admitted to the Medical-Surgical unit. The pt received Ancef maria del carmen-operatively. She participated in P.T. and O.T. and progressed well. She was allowed to WBAT and used a FWW for mobility. The pt's surgical wound was dressed with a Mepilex dressing and remained clean and dry. On POD#1, the pt was started on 325mg ASA BID for VTE prophylaxis. The pt used TEDs and SCDs also. On POD#1, the pt's hemoglobin was 10.5. Medical management was provided by the Hospitalist service and the pt 's hospital course was remarkable for hyponatremia and inability to wean from use of O2 prior to discharge. On POD#4, the pt was deemed appropriate for discharge to home. She will follow-up with her primary care provider and was discharged to home on O2 per [place]. Diagnosis: Stroke: No - Discharge Data Discharge Date: 03/30/19 Discharge Disposition: Home, Self-Care 01 Condition: Good - Referral to Home Health Primary Care Physician: Guru Lewis MD - Patient Summary/Data Operative Procedure(s) Performed: right total knee arthroplasty Consults: Consultations 03/26/19 06:40 OT Evaluation and Treatment [CONS] Routine PT Evaluation and Treatment [CONS] Routine 03/27/19 12:45 Consult to Physician [CONS] Routine 03/27/19 13:54 Consult to Respiratory Therapy [Respiratory Care Assess and Treatment] [CONS] Routine - Patient Instructions Diet: Usual Diet as Tolerated Activity: Apply Ice, As Tolerated, Elevate Extremity, Full Weight Bearing Driving: Do Not Drive Showering/Bathing: May Shower Wound/Incision Care: Keep Operative Site/Wound Site Clean and Dry, Do NOT Change Dressing Notify Provider of: Fever, Increased Pain, Swelling and Redness, Drainage, Nausea and/or Vomiting Other/Special Instructions: Please get up and moving around EVERY HOUR while awake. This helps to prevent blood clots. Please use your walker and have help with mobility as needed. Take a short walk in your home every hour while awake. Please take 325mg Aspirin TWICE daily. The aspirin is being used for blood clot prevention and not for pain management so please do not miss a dose of the medication. You could use a medication like Pepcid or Tagamet and a medication like Prilosec or Nexium to protect your stomach while you are using the aspirin. At home, please complete the exercises that you learned during the Hospital stay. Schedule for physical therapy. Use the pain medication as needed. The medication may cause drowsiness and constipation. Contact your primary care provider for instructions if you are constipated. You may use a stool softener like docusate sodium or Colace 100mg twice daily and/or a laxative like Miralax daily for constipation. Increase your water and fiber intake while you are using the pain medication. Discontinue use of the pain medication as soon as able. Please do not use other medications that may cause drowsiness (other pain medications, anxiety pills, cold medications, sleeping pills, etc) while using the prescription pain medication. Do not use alcohol while using the pain medication. You may use acetaminophen or Tylenol for pain management, however, please ensure you are not using over 4000 mg or 4 grams of acetaminophen per day from all sources. Your pain medication has 325mg of acetaminophen per tablet. At this time, please do not use ibuprofen (Motrin, Advil) or naproxen (Aleve) for pain management as you are using the aspirin. When the aspirin course is completed in 4 to 6 weeks, you could use ibuprofen or naproxen for pain management (if this is allowed by your primary care provider). Wear the ZUNILDA hose during the day and you may remove these at night. Elevate the limb to decrease swelling. Place ice to the area often. Place a towel between your skin and the blue pad. Use the incentive spirometer often. Take deep breaths throughout the day. Please keep the dressing in place until follow-up. Notify the Clinic if the dressing becomes saturated. Increase your protein intake while you are healing. If you have diabetes, please closely monitor your blood sugars and notify your primary care provider with abnormal values. Elevated blood sugars increases the risk of infection. You may resume use of herbal medications in 2 weeks. Your SODIUM level was a bit low after surgery. This is sometimes seen due to the surgery. We have scheduled a follow -up appointment with your primary care provider to have this re-checked following surgery. You will have a lab draw on 04/02/19 at the clinic in [place]. Call the Clinic with questions or concerns - [phone]. Follow-up with pulmonology as directed. Recommend you recieve a pulmonary function test at that appointment. Continue to wear your oxygen. 2L at all times and 4L with activity. Stop taking your Hydrochlorothiazide (HCTZ), as this likely contributed to your low sodium. Continue Cozaar (losartan) as directed. A prescription for this was sent to your pharmacy. Do not take the combination HCTZ/Losartan anymore. - Discharge Plan *PRESCRIPTION DRUG MONITORING PROGRAM REVIEWED*: No *COPY OF PRESCRIPTION DRUG MONITORING REPORT IN PATIENT INGRID: No Prescriptions/Med Rec: Acetaminophen/oxyCODONE [Percocet 325-5 MG] 1 - 2 tab PO Q4H PRN #60 tablet PRN Reason: Pain Aspirin [Ecotrin EC] 325 mg PO BID #84 tab.ec Losartan [Cozaar] 50 mg PO DAILY #20 tablet Home Medications: Home Meds Calcium Carbonate/Vitamin D3 [Calcium 600 + Vit D 200] 1 tab PO DAILY 03/23/19 [ History] Cholecalciferol (Vitamin D3) [Vitamin D3] 1 tab PO DAILY 03/23/19 [History] Escitalopram Oxalate [Lexapro] 10 mg PO DAILY 03/23/19 [History] Magnesium 400 mg PO DAILY 03/23/19 [History] Multivitamin [One-Daily Multi-Vitamin] 1 tab PO DAILY 03/23/19 [History] Potassium Gluconate [Potassium] 99 mg PO DAILY 03/23/19 [History] busPIRone [Buspar] 5 mg PO TID 03/23/19 [History] traZODone HCl [Trazodone HCl] 50 mg PO BEDTIME 03/23/19 [History] Acetaminophen/oxyCODONE [Percocet 325-5 MG] 1 - 2 tab PO Q4H PRN #60 tablet [Rx] Aspirin [Ecotrin EC] 325 mg PO BID #84 tab.ec 03/27/19 [Rx] Docusate Sodium [Colace] 100 mg PO BID cap 03/27/19 [Rx] Famotidine [Pepcid] 20 mg PO Q12H tablet 03/27/19 [Rx] Magnesium Hydroxide [Milk of Magnesia] 30 ml PO BID PRN cup 03/27/19 [Rx] Sennosides [Senna] 8.6 mg PO BID PRN tablet 03/27/19 [Rx] bisacodyL [Dulcolax] 5 mg PO DAILY PRN tablet 03/27/19 [Rx] Losartan [Cozaar] 50 mg PO DAILY #20 tablet 03/29/19 [Rx] Oxygen Therapy Mode: Nasal Cannula Oxygen Flow Rate (L/min): 2 (2L at all times, 4L with activity) Patient Handouts: Hyponatremia, Glis-ok-Orrn, Home Oxygen Use, Adult, Total Knee Replacement, [id number] Referrals: Hernán Gamez [Other] - 05/03/19 12:00 pm (Power Plant Manager appointment is at 1:00 p.m. Central Standard Time. You will have pulmonary function tests prior to your appointment at 12:00 noon. Please arrive at 11:30 am [employer]. There will not be a visiting lead former (Dr Lora) in [place] until June. You would need to call in May at [phone] to schedule with him.) Guru Lewis MD [Primary Care Provider] - 04/06/19 10:30 am (Please follow up with Dr. Lewis in [place] on TuesdayApril 06 at 10:30 am. *Please go to [place] clinic on TuesdayApril 02 between 8:30-10:30 am to get bloodwork done. Results to Dr. Lewis.*) Shandra Ramsay PA-C [Physician [employer]] - (Please follow up with CALLY Lockett on the following dates- April 04 at 10:30 (in [place] with ), April 10 at 1pm (in [place] with Shandra), May 07 at 1pm (in [place] with Shandra).) - Discharge Summary/Plan Comment DC Time >30 min.: No - Patient Data Vitals - Most Recent: Last Vital Signs Temp 98.6 F 03/30/19 07:52 Pulse 81 03/30/19 07:52 Resp 16 03/30/19 07:52 BP 158/94 H 03/30/19 08:18 Pulse Ox 96 03/30/19 07:52 Weight - Most Recent: 205 lb 8 oz I&O - Last 24 hours: Intake & Output 03/29/19 03/30/19 03/30/19 22:59 06:59 14:59 Intake Total 1800 1000 Output Total 500 900 Balance 1300 100 Med Orders - Current: Current Medications Aspirin (Ecotrin) 325 mg PO BID [facility] Last Admin: 03/30/19 08:17 Dose: 325 mg Bisacodyl (Dulcolax) 5 mg PO DAILY PRN PRN Reason: Constipation Last Admin: 03/28/19 20:41 Dose: 5 mg Buspirone HCl (Buspar) 5 mg PO TID [facility] Last Admin: 03/30/19 08:19 Dose: 5 mg Calcium Carbonate (Calcium Carbonate/Vitamin D 600 Mg-200 Unit) 1 tab PO QPM [facility] Last Admin: 03/29/19 17:16 Dose: 1 tab Cholecalciferol (Vitamin D3) 5,000 unit PO QPM [facility] Last Admin: 03/29/19 17:15 Dose: 5,000 unit Citalopram Hydrobromide (Celexa) 20 mg PO QPM [facility] Last Admin: 03/29/19 17:15 Dose: 20 mg Docusate Sodium (Colace) 100 mg PO BID [facility] Last Admin: 03/30/19 08:18 Dose: 100 mg Famotidine (Pepcid) 20 mg PO Q12H [facility] Last Admin: 03/30/19 08:18 Dose: 20 mg Losartan Potassium (Cozaar) 50 mg PO DAILY [facility] Last Admin: 03/30/19 08:18 Dose: 50 mg Magnesium Hydroxide (Milk Of Magnesia) 30 ml PO BID PRN PRN Reason: Constipation Last Admin: 03/29/19 06:37 Dose: 30 ml Magnesium Oxide (Magnesium Oxide) 400 mg PO QPM [facility] Last Admin: 03/29/19 17:16 Dose: 400 mg Morphine Sulfate (Morphine) 2 mg IVPUSH Q2H PRN PRN Reason: Breakthrough Pain Multivitamins (Thera) 1 each PO QPM [facility] Last Admin: 03/29/19 17:14 Dose: 1 each Naloxone HCl (Narcan) 0.1 mg IVPUSH Q5M PRN PRN Reason: Oversedation Ondansetron HCl (Zofran) 4 mg IVPUSH Q6H PRN PRN Reason: Nausea/Vomiting Last Admin: 03/27/19 11:06 Dose: 4 mg Oxycodone/Acetaminophen (Percocet 325-5 Mg) 1 - 2 tab PO Q4H PRN PRN Reason: Pain Last Admin: 03/30/19 09:38 Dose: 2 tab Potassium Gluconate (99 Mg) 0 each PO DAILY [facility] Last Admin: 03/30/19 08:36 Dose: Not Given Senna (Senna) 8.6 mg PO BID PRN PRN Reason: Constipation Last Admin: 03/29/19 10:35 Dose: 8.6 mg Trazodone HCl (Trazodone) 50 mg PO BEDTIME GIFTY Last Admin: 03/29/19 21:08 Dose: 50 mg Discontinued Medications Acetaminophen (Tylenol) 975 mg PO ONETIME ONE Stop: 03/26/19 08:01 Last Admin: 03/26/19 08:09 Dose: 975 mg Bupivacaine HCl (Sensorcaine-Mpf 0.25%) Confirm Administered Dose 10 ml .ROUTE .STK-MED ONE Stop: 03/26/19 08:10 Last Admin: 03/26/19 10:59 Dose: 25 ml Bupivacaine HCl (Sensorcaine-Mpf 0.25%) Confirm Administered Dose 20 ml .ROUTE .STK-MED ONE Stop: 03/26/19 08:40 Cefazolin Sodium (Ancef) Confirm Administered Dose 2 gm .ROUTE .STK-MED ONE Stop: 03/26/19 08:09 Last Admin: 03/26/19 10:51 Dose: 2 gm Morphine Sulfate 8 mg/Epinephrine HCl 0.3 mg/Cefuroxime Sodium 750 mg/Ketorolac Tromethamine 30 mg/Sodium Chloride 27.9 ml 0 mg .XX ONETIME ONE Stop: 03/26/19 08:01 Last Admin: 03/26/19 10:58 Dose: 788.3 mg Ephedrine Sulfate (Ephedrine In Ns) Confirm Administered Dose 25 mg .ROUTE .STK- MED ONE Stop: 03/26/19 10:04 Ephedrine Sulfate (Ephedrine In Ns) Confirm Administered Dose 25 mg .ROUTE .STK- MED ONE Stop: 03/26/19 10:27 Epinephrine HCl (Adrenalin) Confirm Administered Dose 1 mg .ROUTE .STK-MED ONE Stop: 03/26/19 09:16 Fentanyl (Sublimaze) Confirm Administered Dose 100 mcg .ROUTE .STK-MED ONE Stop: 03/26/19 07:45 Fentanyl (Sublimaze) 50 mcg IVPUSH Q5M PRN PRN Reason: Pain Stop: 03/26/19 18:00 Furosemide (Lasix) 20 mg IVPUSH NOW ONE Stop: 03/27/19 14:01 Last Admin: 03/27/19 14:40 Dose: 20 mg Hydrochlorothiazide (Hydrochlorothiazide) 12.5 mg PO DAILY [facility] Last Admin: 03/28/19 08:09 Dose: 12.5 mg Lactated Ringer's (Ringers, Lactated) 1,000 mls @ 125 mls/hr IV ASDIRECTED [facility] Stop: 03/26/19 23:00 Last Admin: 03/26/19 08:15 Dose: 125 mls/hr Cefazolin Sodium/Dextrose 2 gm (/ Premix) 50 mls @ 100 mls/hr IV Q8H [facility] Stop: 03/27/19 08:59 Lidocaine HCl (Xylocaine-Mpf 1%) Confirm Administered Dose 4 mls @ as directed .ROUTE .STK-MED ONE Stop: 03/26/19 07:43 Lactated Ringer's (Ringers, Lactated) Confirm Administered Dose 1,000 mls @ as directed .ROUTE .STK-MED ONE Stop: 03/26/19 09:57 Cefazolin Sodium/Dextrose 2 gm (/ Premix) 50 mls @ 100 mls/hr IV Q8H [facility] Stop: 03/27/19 11:59 Last Admin: 03/27/19 10:30 Dose: 100 mls/hr Sodium Chloride (Normal Saline) 500 mls @ 999 mls/hr IV .BOLUS ONE Stop: 03/28/19 11:34 Last Admin: 03/28/19 12:00 Dose: 999 mls/hr Sodium Chloride (Normal Saline) 500 mls @ 999 mls/min IV .BOLUS ONE Stop: 03/28/19 20:01 Last Admin: 03/28/19 20:37 Dose: 999 mls/min Iodine (Iodine 2% Mild Tincture) Confirm Administered Dose 30 ml .ROUTE .STK- MED ONE Stop: 03/26/19 08:10 Last Admin: 03/26/19 10:50 Dose: 18 ml Ketorolac Tromethamine (Toradol) 15 mg IVPUSH Q6H PRN PRN Reason: Pain Last Admin: 03/28/19 06:26 Dose: 15 mg Ketorolac Tromethamine (Toradol) Confirm Administered Dose 30 mg .ROUTE .STK- MED ONE Stop: 03/26/19 10:27 Lidocaine/Sodium Bicarbonate (Buffered Lidocaine 1% In Ns 8.4%) 0.25 ml IDERM ONETIME PRN PRN Reason: Prior to IV Start Stop: 03/26/19 18:00 Last Admin: 03/26/19 08:15 Dose: 0.25 ml Midazolam HCl (Versed 1 Mg/Ml) Confirm Administered Dose 2 mg .ROUTE .STK-MED ONE Stop: 03/26/19 07:44 Ondansetron HCl (Zofran) Confirm Administered Dose 4 mg .ROUTE .STK-MED ONE Stop: 03/26/19 10:28 Ondansetron HCl (Zofran) 4 mg IVPUSH ONETIME PRN PRN Reason: Nausea/Vomiting Stop: 03/26/19 18:00 Oxycodone HCl (Oxycontin) 10 mg PO ONETIME ONE Stop: 03/26/19 08:01 Last Admin: 03/26/19 08:09 Dose: 10 mg Pregabalin (Lyrica) 50 mg PO ONETIME ONE Stop: 03/26/19 08:01 Last Admin: 03/26/19 08:09 Dose: 50 mg Propofol (Diprivan 20 Ml) Confirm Administered Dose 200 mg .ROUTE .STK-MED ONE Stop: 03/26/19 07:43 Ropivacaine (Naropin 0.5%) Confirm Administered Dose 30 ml .ROUTE .STK-MED ONE Stop: 03/26/19 09:16 Sodium Chloride (Saline Flush) 10 ml FLUSH ASDIRECTED PRN PRN Reason: Keep Vein Open Stop: 03/26/19 18:00 Tranexamic Acid (Cyklokapron) Confirm Administered Dose 1,000 mg .ROUTE .STK- MED ONE Stop: 03/26/19 08:09 Last Admin: 03/26/19 11:04 Dose: 1,000 mg Vancomycin HCl (Vancomycin) Confirm Administered Dose 1 gm .ROUTE .STK-MED ONE Stop: 03/26/19 08:09 Last Admin: 03/26/19 11:00 Dose: 1 gm
== END 2019-03-30 11:35 | disposition home or self-care (01) ==
LOC: JD.SDS 07:38 → JD.MS 07:41 → JD.SDS 03-27 19:57 → JD.MS 03-27 19:58
PROVIDERS: ADMIT Orthopaedic Surgery; ATTEND Orthopaedic Surgery
DX: M17.0 Bilateral primary osteoarthritis of knee (principal); J95.89 Other postprocedural complications and disorders of respiratory system, not elsewhere classified; R09.02 Hypoxemia; G89.28 Other chronic postprocedural pain; I10 Essential (primary) hypertension; F32.9 Major depressive disorder, single episode, unspecified; F41.9 Anxiety disorder, unspecified; M53.3 Sacrococcygeal disorders, not elsewhere classified; G47.00 Insomnia, unspecified; D47.3 Essential (hemorrhagic) thrombocythemia; E83.52 Hypercalcemia; J98.11 Atelectasis; E87.1 Hypo-osmolality and hyponatremia; Z87.891 Personal history of nicotine dependence; Z79.82 Long term (current) use of aspirin; Z79.899 Other long term (current) drug therapy
CPT/HCPCS: 27447; 36415; 64447; 71046; 73560; 80048; 80053; 82570; 83735; 84300; 85025; 85027; 87641; 94640; 94664; 94668; 94761; 96361; 96374; 97110; 97116; 97161; 97165; 97535; A9270; C1776; G0378; J0171; J0690; J0697; J1885; J2001; J2250; J2270; J2405; J2704; J2795; J3010; J3370; J3490; J7030; J7040; J7050; J7120; 01402; 64450